=== PATIENT | male | born 1970 | race Two or more races ===

== ENCOUNTER 2019-12-20 13:03 | Observation (INO) | payer MEDICAID ==
[2019-12-20] MEDS ORDERED: Sodium Chloride 0.9% 10 ML Syringe FLUSH PRN (13:59)
[2019-12-20] MEDS ORDERED: Sodium Chloride 0.9% 2.5 ML Syringe FLUSH PRN (13:59)
[2019-12-20 14:26] LABS: BLOOD UREA NITROGEN,BUN 14 mg/dL (7.0-18.0); CARBON DIOXIDE,CO2 25.9 mmol/L (21.0-32.0); CHLORIDE,CL 105 mmol/L (98-107); GLUCOSE RANDOM 103 mg/dL (74-106); POTASSIUM,K 4.2 mmol/L (3.5-5.1); SODIUM,NA 143 mmol/L (136-148)
--- NOTE | 2019-12-20 14:45 | EDM.PDOC ---
ED HPI GENERAL MEDICAL PROBLEM - General Chief Complaint: Chest Pain Stated Complaint: HEAD PAIN WEAKNESS Time Seen by Provider: 12/20/19 13:12 Source of Information: Reports: Patient History Limitations: Reports: No Limitations - History of Present Illness INITIAL COMMENTS - FREE TEXT/NARRATIVE: HISTORY AND PHYSICAL: History of present illness: Patient is a 49-year-old male who presents to the ED today with concern of left sided head pressure, neck pain, and chest pain that worsened this morning before coming to the ED. Patient states he has had a generalized pressure in his head over the past 3 to 4 weeks but this morning has become more severe. Patient states that he is also having chest pain that radiates up into his neck and into the left side of his head. Patient states that it is not a typical headache but feels like a head pressure radiating chest pain. Patient denies any head injury or trauma. 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 Patient states he does have an extensive family history of "heart problems "but is unsure of what these issues are. Patient denies fever, chills, shortness of breath, or cough. Denies neck stiff ness, change in vision, syncope, or near syncope. Denies nausea, vomiting, abdominal pain, diarrhea, constipation, or dysuria. Has not noted any blood in urine or stool. Patient has been eating and drinking appropriately. Review of systems: As per history of present illness and below otherwise all systems reviewed and negative. Past medical history: As per history of present illness and as reviewed below otherwise noncontributory. Surgical history: As per history of present illness and as reviewed below otherwise noncontributory. Social history: See social history for further information Family history: As per history of present illness and as reviewed below otherwise noncontributory. Physical exam: General: Patient is alert, oriented, and in no acute distress. Patient sitting comfortably on exam table but anxious appearing. HEENT: Atraumatic, normocephalic, pupils equal and reactive bilaterally, negative for conjunctival pallor or scleral icterus, mucous membranes moist, TMs normal bilaterally, throat clear, neck supple, nontender, trachea midline. No drooling or trismus noted. No meningeal signs. No hot potato voice noted. Lungs: Clear to auscultation, breath sounds equal bilaterally, chest nontender. Heart: S1S2, regular rate and rhythm without overt murmur Abdomen: Soft, nondistended, nontender. Negative for masses or hepatosplenomegaly. Negative for costovertebral tenderness. Pelvis: Stable nontender. Genitourinary: Deferred. Rectal: Deferred. Skin: Intact, warm, dry. No lesions or rashes noted. Extremities/musculoskeletal: Patient has full range of motion of the complete spine without pain or difficulty. Atraumatic, negative for cords or calf pain. Neurovascular unremarkable. Neuro: Awake, alert, oriented. Cranial nerves II through XII unremarkable. Cerebellum unremarkable. Motor and sensory unremarkable throughout. Exam nonfocal. Notes: Discussed patient Dr. Caraballo and accepting of admission for observation telemetry. Dr. Mccann verbally involved in patient care. Voices understanding and is agreeable to plan of care. Denies any further questions or concerns at this time. Diagnostics: CBC, CMP, UA, EKG, CXR, Trop, Head CT, Ang CT head/neck,COVID 19 Therapeutics: ASA, Morphine Impression: Chest pain r/o ACS Headache Plan: Admission for observation on telemetry to Dr. Caraballo Definitive disposition and diagnosis as appropriate pending reevaluation and review of above. chest Pain Score (Numeric/FACES): 8 - Related Data Allergies Allergy/AdvReac Type Severity Reaction Status Date / Time shrimp Allergy Swelling Verified 12/20/19 13:50 Home Meds: Home Meds . [No Known Home Meds] 12/20/19 [History] Past Medical History HEENT History: Reports: Other (See Below) Other HEENT History: frequent lock jaw Musculoskeletal History: Reports: None - Past Surgical History HEENT Surgical History: Reports: Other (See Below) Other HEENT Surgeries/Procedures: R jaw Musculoskeletal Surgical History: Reports: Other (See Below) Other Musculoskeletal Surgeries/Procedures:: work related injury to L arm that led to nerve damage Social & Family History - Family History Family Medical History: Noncontributory - Tobacco Use Smoking Status *Q: Never Smoker Second Hand Smoke Exposure: No - Caffeine Use Caffeine Use: Reports: None - Recreational Drug Use Recreational Drug Use: No ED ROS GENERAL - Review of Systems Review Of Systems: Comprehensive ROS is negative, except as noted in HPI. ED EXAM, GENERAL - Physical Exam Exam: See Below (see dictation) Course - Vital Signs Last Recorded V/S: Last Vital Signs Temp 97 F 12/20/19 13:46 Pulse 65 12/20/19 15:12 Resp 18 12/20/19 13:46 BP 123/88 12/20/19 15:12 Pulse Ox 96 12/20/19 15:12 - Orders/Labs/Meds Orders: Active Orders 24 hr Category Date Time Status Admission Status [Patient Status] [ADT] Stat ADT 12/20/19 16:52 Active Sodium Chloride 0.9% [Saline Flush] Med 12/20/19 13:59 Active 10 ml FLUSH ASDIRECTED PRN Sodium Chloride 0.9% [Saline Flush] Med 12/20/19 13:59 Active 2.5 ml FLUSH ASDIRECTED PRN Saline Lock Insert [OM.PC] Stat Oth 12/20/19 13:59 Ordered Medication Orders Enoxaparin Sodium (Lovenox) 40 mg SUBCUT Q24H [facility] Insulin Aspart (Novolog) 0 unit SUBCUT TIDAC [facility]; Protocol Pantoprazole Sodium (Protonix) 40 mg PO DAILY SANDI Sodium Chloride (Saline Flush) 10 ml FLUSH ASDIRECTED PRN PRN Reason: Keep Vein Open Last Admin: 12/20/19 15:16 Dose: 10 ml Documented by: MARY Sodium Chloride (Saline Flush) 2.5 ml FLUSH ASDIRECTED PRN PRN Reason: Keep Vein Open Last Admin: 12/20/19 15:16 Dose: 2.5 ml Documented by: MARY Labs: Laboratory Tests 12/20/19 12/20/19 12/20/19 Range/Units 13:47 13:47 13:47 WBC 6.47 (4.0-11.0) K/uL RBC 4.28 L (4.50-5.90) M/uL Hgb 13.8 (13.0-17.0) g/dL Hct 41.2 (38.0-50.0) % MCV 96.3 (80.0-98.0) fL MCH 32.2 H (27.0-32.0) pg MCHC 33.5 (31.0-37.0) g/dL RDW Std Deviation 46.9 (28.0-62.0) fl RDW Coeff of Elena 13 (11.0-15.0) % Plt Count 242 (150-400) K/uL MPV 9.00 (7.40-12.00) fL Neut % (Auto) 54.3 (48.0-80.0) % Lymph % (Auto) 36.2 (16.0-40.0) % [place] % (Auto) 7.9 (0.0-15.0) % Eos % (Auto) 1.4 (0.0-7.0) % Baso % (Auto) 0.2 (0.0-1.5) % Neut # (Auto) 3.5 (1.4-5.7) K/uL Lymph # (Auto) 2.3 (0.6-2.4) K/uL [place] # (Auto) 0.5 (0.0-0.8) K/uL Eos # (Auto) 0.1 (0.0-0.7) K/uL Baso # (Auto) 0.0 (0.0-0.1) K/uL Nucleated RBC % 0.0 /100WBC Nucleated RBCs # 0 K/uL ESR 17 (0-19) mm/hr Sodium 143 (136-148) mmol/L Potassium 4.2 (3.5-5.1) mmol/L Chloride 105 (98-107) mmol/L Carbon Dioxide 25.9 (21.0-32.0) mmol/L BUN 14 (7.0-18.0) mg/dL Creatinine 1.2 (0.8-1.3) mg/dL Est Cr Clr Drug Dosing 68.09 mL/min Estimated GFR (MDRD) > 60.0 ml/min Glucose 103 (74-106) mg/dL Hemoglobin A1c (4.5-6.2) % Calcium 9.3 (8.5-10.1) mg/dL Total Bilirubin 0.5 (0.2-1.0) mg/dL AST 24 (15-37) IU/L ALT 56 (14-63) IU/L Alkaline Phosphatase 94 (46-116) U/L Troponin I < 0.050 (0.000-0.056) ng/mL Total Protein 7.7 (6.4-8.2) g/dL Albumin 3.8 (3.4-5.0) g/dL Globulin 3.9 (2.6-4.0) g/dL Albumin/Globulin Ratio 1.0 (0.9-1.6) Urine Color Urine Appearance Urine pH (5.0-8.0) Ur Specific [place] (1.001-1.035) Urine Protein (NEGATIVE) mg/dL Urine Glucose (UA) (NEGATIVE) mg/dL Urine Ketones (NEGATIVE) mg/dL Urine Occult Blood (NEGATIVE) Urine Nitrite (NEGATIVE) Urine Bilirubin (NEGATIVE) Urine Urobilinogen (<2.0) EU/dL Ur Leukocyte Esterase (NEGATIVE) SARS-CoV-2 RNA (MARIANA) (NEGATIVE) 12/20/19 12/20/19 12/20/19 Range/Units 13:47 14:22 17:00 WBC (4.0-11.0) K/uL RBC (4.50-5.90) M/uL Hgb (13.0-17.0) g/dL Hct (38.0-50.0) % MCV (80.0-98.0) fL MCH (27.0-32.0) pg MCHC (31.0-37.0) g/dL RDW Std Deviation (28.0-62.0) fl RDW Coeff of Elena (11.0-15.0) % Plt Count (150-400) K/uL MPV (7.40-12.00) fL Neut % (Auto) (48.0-80.0) % Lymph % (Auto) (16.0-40.0) % [place] % (Auto) (0.0-15.0) % Eos % (Auto) (0.0-7.0) % Baso % (Auto) (0.0-1.5) % Neut # (Auto) (1.4-5.7) K/uL Lymph # (Auto) (0.6-2.4) K/uL [place] # (Auto) (0.0-0.8) K/uL Eos # (Auto) (0.0-0.7) K/uL Baso # (Auto) (0.0-0.1) K/uL Nucleated RBC % /100WBC Nucleated RBCs # K/uL ESR (0-19) mm/hr Sodium (136-148) mmol/L Potassium (3.5-5.1) mmol/L Chloride (98-107) mmol/L Carbon Dioxide (21.0-32.0) mmol/L BUN (7.0-18.0) mg/dL Creatinine (0.8-1.3) mg/dL Est Cr Clr Drug Dosing mL/min Estimated GFR (MDRD) ml/min Glucose (74-106) mg/dL Hemoglobin A1c 6.5 H (4.5-6.2) % Calcium (8.5-10.1) mg/dL Total Bilirubin (0.2-1.0) mg/dL AST (15-37) IU/L ALT (14-63) IU/L Alkaline Phosphatase (46-116) U/L Troponin I (0.000-0.056) ng/mL Total Protein (6.4-8.2) g/dL Albumin (3.4-5.0) g/dL Globulin (2.6-4.0) g/dL Albumin/Globulin Ratio (0.9-1.6) Urine Color YELLOW Urine Appearance CLEAR Urine pH 5.5 (5.0-8.0) Ur Specific [place] 1.025 (1.001-1.035) Urine Protein NEGATIVE (NEGATIVE) mg/dL Urine Glucose (UA) NEGATIVE (NEGATIVE) mg/dL Urine Ketones NEGATIVE (NEGATIVE) mg/dL Urine Occult Blood NEGATIVE (NEGATIVE) Urine Nitrite NEGATIVE (NEGATIVE) Urine Bilirubin NEGATIVE (NEGATIVE) Urine Urobilinogen 0.2 (<2.0) EU/dL Ur Leukocyte Esterase NEGATIVE (NEGATIVE) SARS-CoV-2 RNA (MARIANA) NEGATIVE (NEGATIVE) Meds: Medications Generic Name Dose Route Start Last Admin Trade Name Freq PRN Reason Stop Dose Admin Enoxaparin Sodium 40 mg 12/20/19 17:30 Lovenox SUBCUT Q24H [facility] Insulin Aspart 0 unit 12/21/19 07:30 Novolog SUBCUT TIDAC [facility] Protocol Pantoprazole Sodium 40 mg 12/20/19 17:30 Protonix PO DAILY SANDI Sodium Chloride 10 ml 12/20/19 13:59 12/20/19 15:16 Saline Flush FLUSH 10 ml ASDIRECTED PRN Administration Keep Vein Open Sodium Chloride 2.5 ml 12/20/19 13:59 12/20/19 15:16 Saline Flush FLUSH 2.5 ml ASDIRECTED PRN Administration Keep Vein Open Discontinued Medications Generic Name Dose Route Start Last Admin Trade Name Hao PRGuilherme Reason Stop Dose Admin Aspirin 324 mg 12/20/19 16:46 12/20/19 16:55 Aspirin PO 12/20/19 16:47 324 mg ONETIME ONE Administration Iopamidol 100 ml 12/20/19 16:12 12/20/19 16:14 Isovue Multipack-370 (76%) IVPUSH 12/20/19 16:13 100 ml ONETIME ONE Administration Morphine Sulfate 2 mg 12/20/19 16:46 12/20/19 16:55 Morphine IVPUSH 12/20/19 16:47 2 mg ONETIME ONE Administration Departure - Departure Time of Disposition: 16:57 Disposition: Refer to Observation Clinical Impression: Chest pain, rule out acute myocardial infarction Headache Qualifiers: Headache type: unspecified Headache chronicity pattern: acute headache Intractability: not intractable Qualified Code(s): R51 - Headache - Discharge Information Sepsis Event Note (ED) - Evaluation Sepsis Screening Result: No Definite Risk - Focused Exam Vital Signs: Vital Signs Temp Pulse Resp BP Pulse Ox 12/20/19 15:12 65 123/88 96 12/20/19 14:43 70 102/62 97 12/20/19 14:12 70 142/94 H 96 12/20/19 13:57 70 128/68 96 12/20/19 13:46 97 F 72 18 130/91 H 97 - My Orders Last 24 Hours: My Active Orders 12/20/19 13:59 Sodium Chloride 0.9% [Saline Flush] 10 ml FLUSH ASDIRECTED PRN Sodium Chloride 0.9% [Saline Flush] 2.5 ml FLUSH ASDIRECTED PRN Saline Lock Insert [OM.PC] Stat 12/20/19 16:52 Admission Status [Patient Status] [ADT] Stat - Assessment/Plan Last 24 Hours: My Active Orders 12/20/19 13:59 Sodium Chloride 0.9% [Saline Flush] 10 ml FLUSH ASDIRECTED PRN Sodium Chloride 0.9% [Saline Flush] 2.5 ml FLUSH ASDIRECTED PRN Saline Lock Insert [OM.PC] Stat 12/20/19 16:52 Admission Status [Patient Status] [ADT] Stat
--- NOTE | 2019-12-20 14:46 | CR ---
Chest: Portable view of the chest was obtained. Comparison: No prior chest imaging. Heart size and mediastinum are normal. Lungs are clear with no acute parenchymal change. Bony structures are grossly intact. Impression: 1. Nothing acute is seen on portable chest x-ray. Diagnostic code #1 This report was dictated in MDT
--- NOTE | 2019-12-20 15:25 | CT ---
Head CT Technique: Multiple axial sections through the brain were obtained. Intravenous contrast was not utilized. Comparison: No prior intracranial imaging is available. Findings: Ventricles along with basal cisterns and sulci over the convexities are within normal limits for the patient's age. No abnormal parenchymal densities are seen. No evidence of intracranial hemorrhage. No midline shift or mass-effect is seen. Visualized paranasal sinuses and mastoid sinuses show nothing acute. No acute calvarial finding is appreciated. Impression: 1. Nothing acute is appreciated on noncontrast head CT exam. Diagnostic code #1 This report was dictated in MDT
[2019-12-20] MEDS ORDERED: Iopamidol 755 MG/ML 500 ML Multipack Bottle IVPUSH ONE (16:12)
--- NOTE | 2019-12-20 16:30 | CT ---
CT angiogram of brain Technique: Multiple axial sections through the brain were obtained. Intravenous contrast was utilized. Study obtained during the arterial phase and CT angiogram study obtained. Multiple MIP images were obtained. Findings: Dominant right vertebral artery over the left vertebral artery which is a normal variant. Both distal vertebral arteries are patent. Basilar artery appears normal. Posterior cerebral arteries appear within normal limits. Anterior circulation shows normal flow into the carotid siphon. Normal flow into the middle cerebral arteries and anterior cerebral arteries are seen. No focal stenosis or occlusion is seen. No discrete aneurysm is appreciated. Impression: 1. No abnormality is appreciated on CT angiogram of the brain. Diagnostic code #1 This report was dictated in MDT
--- NOTE | 2019-12-20 16:35 | CT ---
CT angiogram and neck Technique: Multiple axial sections through the neck were obtained. Intravenous contrast was utilized. Study obtained during the arterial phase and neck angiogram was performed. Findings: Artifact is noted which obscures the proximal right common carotid artery. Other portions of the common carotid arteries are well seen and patent on both sides. Carotid bulbs appear within normal limits. Internal carotid arteries are patent on both sides. Proximal external carotid arteries are also patent on both sides. No occlusion or stenosis is seen. No dissection is seen. Mild degenerative change partially visualized within the cervical spine. Impression: 1. Artifact obscuring the proximal right common carotid artery. 2. Mild degenerative change is partially visualized within the cervical spine. 3. CT angiogram of the neck is otherwise unremarkable. Diagnostic code #2 This report was dictated in MDT
[2019-12-20] MEDS ORDERED: Aspirin 81 MG Tab.Chew PO ONE (16:46)
[2019-12-20] MEDS ORDERED: Morphine 2 MG/ML SYRINGE IVPUSH ONE (16:46)
--- NOTE | 2019-12-20 17:21 | PCM.HP.2 ---
<Becca Ortiz - Last Filed: 12/21/19 13:09> H&P History of Present Illness - General Date of Service: 12/20/19 Admit Problem/Dx: Admission Diagnosis/Problem Admission Diagnosis/Problem Chest pain Source of Information: Patient History Limitations: Reports: No Limitations - History of Present Illness Initial Comments - Free Text/Narative: 49-year-old male who presents to the ED today with concern of left sided head pressure, neck pain, and chest pain that worsened this morning before coming to the ED. Patient states he has had a generalized pressure in his head over the past 3 to 4 weeks but this morning has become more severe. Patient states that he is also having chest pain that radiates up into his neck and into the left side of his head. Patient states that it is not a typical headache but feels like a head pressure radiating chest pain. Patient denies any head injury or trauma. 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 Patient states he does have an extensive family history of "heart problems "but is unsure of what these issues are. Patient denies fever, chills, shortness of breath, or cough. Denies neck stiff ness, change in vision, syncope, or near syncope. Denies nausea, vomiting, abdominal pain, diarrhea, constipation, or dysuria. Has not noted any blood in urine or stool. Patient has been eating and drinking appropriately. ED course: ASA given Morphine x 1 given Troponin x 1 negative UA negative CBC/CMP unremarkable CXR, CTA, chest head and neck did not yield any acute pathology EKG:NSR w.o ST elevations/depressions Bedside: mentions pain is mostly over his head/forehead, left side of his neck and left side of chest: mentions pain has improved since given the Morphine Also endorses urninating more frequently with increasing bouts of diarrhea Denies any fevers, chills, BA. Of note pt does have at baseline, chronic loss of sensation of both left upper extremity (right hand dominant) and left lower extremity secondary to previous work-related traumas. Mentions vision has been worsening ans states he sees floaters and dark spots at times. Denies any recent head trauma, falls or over exertion chest Pain Score (Numeric/FACES): 8 Left shoulder & neck Pain Score (Numeric/FACES): 6 - Related Data Allergies/Adverse Reactions: Allergies Allergy/AdvReac Type Severity Reaction Status Date / Time shrimp Allergy Swelling Verified 12/20/19 19:10 Home Medications: Home Meds Diclofenac Sodium 25 mg PO BID PRN 7 Days #14 tablet. 12/21/19 [Rx] Omeprazole 20 mg PO DAILY 7 Days #7 capsule. 12/21/19 [Rx] metFORMIN [Glucophage] 500 mg PO DAILY 30 Days #30 tab 12/21/19 [Rx] Past Medical History HEENT History: Reports: Other (See Below) Other HEENT History: frequent lock jaw Musculoskeletal History: Reports: None - Past Surgical History HEENT Surgical History: Reports: Other (See Below) Other HEENT Surgeries/Procedures: R jaw Musculoskeletal Surgical History: Reports: Other (See Below) Other Musculoskeletal Surgeries/Procedures:: work related injury to L arm that led to nerve damage Social & Family History - Family History Family Medical History: Noncontributory - Tobacco Use Smoking Status *Q: Never Smoker Second Hand Smoke Exposure: No - Caffeine Use Caffeine Use: Reports: None - Recreational Drug Use Recreational Drug Use: No H&P Review of Systems - Review of Systems: Review Of Systems: See Below General: Reports: No Symptoms HEENT: Reports: No Symptoms Pulmonary: Reports: No Symptoms Cardiovascular: Reports: Chest Pain. Denies: Palpitations, Dyspnea on Exertion, Orthopnea, Edema, Lightheadedness Gastrointestinal: Reports: Diarrhea. Denies: Abdominal Pain, Constipation, Decreased Appetite, Nausea Genitourinary: Reports: No Symptoms Musculoskeletal: Reports: Neck Pain, Shoulder Pain Skin: Reports: No Symptoms Psychiatric: Reports: No Symptoms Neurological: Reports: Headache, Numbness, Paresthesia, Pre-Existing Deficit. Denies: Confusion, Dizziness, Seizure, Syncope, Difficulty Walking, Change in Speech, Gait Disturbance Hematologic/Lymphatic: Reports: No Symptoms Exam - Exam Exam: See Below - Vital Signs Vital Signs: Last Vital Signs Temp 97 F 12/20/19 13:46 Pulse 65 12/20/19 15:12 Resp 18 12/20/19 13:46 BP 123/88 12/20/19 15:12 Pulse Ox 96 12/20/19 15:12 Weight: 97 kg - Exam Quality Assessment: No: Supplemental Oxygen General: Alert, Oriented, Cooperative HEENT: EOMI Neck: Supple, Trachea Midline Lungs: Clear to Auscultation, Normal Respiratory Effort Cardiovascular: Regular Rate, Regular Rhythm GI/Abdominal Exam: Soft, Non-Tender Back Exam: Normal Inspection Extremities: Normal Range of Motion, Other (decrease sensation of left ankle- merly; old surgical scar noted ; pressure senstion intat, ROM intact. Left armpit/axiallry scars noted as well; right hand dominant ; 4/5 strength of left upper extremity compared to right ) Skin: Warm, Dry, Intact Neurological: Cranial Nerves Intact, Reflexes Equal Bilateral, Normal Speech Neuro Extensive - Mental Status: Alert, Oriented x3, Normal Mood/Affect, Normal Cognition, Memory Intact Neuro Extensive - Motor, Sensory, Reflexes: CN II-XII Intact Psychiatric: Alert, Normal Affect, Normal Mood - Patient Data Lab Results Last 24 hrs: Laboratory Results - last 24 hr 12/20/19 12/20/19 12/20/19 Range/Units 13:47 13:47 14:22 WBC 6.47 (4.0-11.0) K/uL RBC 4.28 L (4.50-5.90) M/uL Hgb 13.8 (13.0-17.0) g/dL Hct 41.2 (38.0-50.0) % MCV 96.3 (80.0-98.0) fL MCH 32.2 H (27.0-32.0) pg MCHC 33.5 (31.0-37.0) g/dL RDW Std Deviation 46.9 (28.0-62.0) fl RDW Coeff of Elena 13 (11.0-15.0) % Plt Count 242 (150-400) K/uL MPV 9.00 (7.40-12.00) fL Neut % (Auto) 54.3 (48.0-80.0) % Lymph % (Auto) 36.2 (16.0-40.0) % [place] % (Auto) 7.9 (0.0-15.0) % Eos % (Auto) 1.4 (0.0-7.0) % Baso % (Auto) 0.2 (0.0-1.5) % Neut # (Auto) 3.5 (1.4-5.7) K/uL Lymph # (Auto) 2.3 (0.6-2.4) K/uL [place] # (Auto) 0.5 (0.0-0.8) K/uL Eos # (Auto) 0.1 (0.0-0.7) K/uL Baso # (Auto) 0.0 (0.0-0.1) K/uL Nucleated RBC % 0.0 /100WBC Nucleated RBCs # 0 K/uL Sodium 143 (136-148) mmol/L Potassium 4.2 (3.5-5.1) mmol/L Chloride 105 (98-107) mmol/L Carbon Dioxide 25.9 (21.0-32.0) mmol/L BUN 14 (7.0-18.0) mg/dL Creatinine 1.2 (0.8-1.3) mg/dL Est Cr Clr Drug Dosing 68.09 mL/min Estimated GFR (MDRD) > 60.0 ml/min Glucose 103 (74-106) mg/dL Calcium 9.3 (8.5-10.1) mg/dL Total Bilirubin 0.5 (0.2-1.0) mg/dL AST 24 (15-37) IU/L ALT 56 (14-63) IU/L Alkaline Phosphatase 94 (46-116) U/L Troponin I < 0.050 (0.000-0.056) ng/mL Total Protein 7.7 (6.4-8.2) g/dL Albumin 3.8 (3.4-5.0) g/dL Globulin 3.9 (2.6-4.0) g/dL Albumin/Globulin Ratio 1.0 (0.9-1.6) Urine Color YELLOW Urine Appearance CLEAR Urine pH 5.5 (5.0-8.0) Ur Specific Post 1.025 (1.001-1.035) Urine Protein NEGATIVE (NEGATIVE) mg/dL Urine Glucose (UA) NEGATIVE (NEGATIVE) mg/dL Urine Ketones NEGATIVE (NEGATIVE) mg/dL Urine Occult Blood NEGATIVE (NEGATIVE) Urine Nitrite NEGATIVE (NEGATIVE) Urine Bilirubin NEGATIVE (NEGATIVE) Urine Urobilinogen 0.2 (<2.0) EU/dL Ur Leukocyte Esterase NEGATIVE (NEGATIVE) Result Diagrams: 12/21/19 06:05 12/21/19 06:05 Sepsis Event Note - Evaluation Sepsis Screening Result: No Definite Risk - Focused Exam Vital Signs: Vital Signs Temp Pulse Resp BP Pulse Ox 12/20/19 15:12 65 123/88 96 12/20/19 14:43 70 102/62 97 12/20/19 14:12 70 142/94 H 96 12/20/19 13:57 70 128/68 96 12/20/19 13:46 97 F 72 18 130/91 H 97 Problem List Initiated/Reviewed/Updated: Yes Orders Last 24hrs: Active Orders 24 hr Category Date Time Status Admission Status [Patient Status] [ADT] Stat ADT 12/20/19 16:52 Active EKG Documentation Completion [RC] STAT Care 12/20/19 13:58 Active Telemetry Monitoring [Cardiac Monitoring] [RC] . Care 12/20/19 17:18 Ordered DIRECTED Up ad Michelle [RC] ASDIRECTED Care 12/20/19 17:18 Ordered Vital Signs [RC] PER UNIT ROUTINE Care 12/20/19 17:18 Ordered BMP [BASIC METABOLIC PANEL,BMP] [CHEM] AM Lab 12/21/19 05:11 Ordered BMP [BASIC METABOLIC PANEL,BMP] [CHEM] AM Lab 12/22/19 05:11 Ordered BMP [BASIC METABOLIC PANEL,BMP] [CHEM] AM Lab 12/23/19 05:11 Ordered CBC WITH AUTO DIFF [HEME] AM Lab 12/21/19 05:11 Ordered CBC WITH AUTO DIFF [HEME] AM Lab 12/22/19 05:11 Ordered CBC WITH AUTO DIFF [HEME] AM Lab 12/23/19 05:11 Ordered CORONAVIRUS COVID-19 MARIANA [MOLEC] Stat Lab 12/20/19 17:00 Received CRP [C-REACTIVE PROTEIN] [CHEM] Routine Lab 12/20/19 17:17 Ordered ESR [SEDIMENTATION RATE AUTO] [HEME] Routine Lab 12/20/19 17:16 Ordered GLYCOSYLATED HEMOGLOBIN,HGBA1C [CHEM] Routine Lab 12/20/19 17:17 Ordered TROPONIN I [CHEM] Stat Lab 12/20/19 20:30 Ordered TROPONIN I [CHEM] Urgent Lab 12/20/19 17:20 Ordered Enoxaparin [Lovenox] Med 12/20/19 17:30 Ordered 40 mg SUBCUT Q24H Pantoprazole [ProTONIX] Med 09/18/20 17:30 Ordered 40 mg PO DAILY Sodium Chloride 0.9% [Saline Flush] Med 12/20/19 13:59 Active 10 ml FLUSH ASDIRECTED PRN Sodium Chloride 0.9% [Saline Flush] Med 12/20/19 13:59 Active 2.5 ml FLUSH ASDIRECTED PRN Saline Lock Insert [OM.PC] Stat Oth 12/20/19 13:59 Ordered Medication Orders Enoxaparin Sodium (Lovenox) 40 mg SUBCUT Q24H SANDI Pantoprazole Sodium (Protonix) 40 mg PO DAILY SANDI Sodium Chloride (Saline Flush) 10 ml FLUSH ASDIRECTED PRN PRN Reason: Keep Vein Open Last Admin: 12/20/19 15:16 Dose: 10 ml Documented by: MARY Sodium Chloride (Saline Flush) 2.5 ml FLUSH ASDIRECTED PRN PRN Reason: Keep Vein Open Last Admin: 12/20/19 15:16 Dose: 2.5 ml Documented by: MARY Assessment/Plan Comment:: Assessment: 1. Chest pain /ACS rule out 2. Headache/Migraine 2. Newly diagnosed DM 3. 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 Obesity Plan Admit to observation. Full code. I/o's per routine. up ad michelle. Diet :heart healthy GI: pantoprazole 40 daily DVT: lovenox 40 daily Covid negaitve 1. ACS rule out: ASA given. recheck troponin x 2 q 3hours . Continue on telemetry Tylenol/Ibuprofen for pain control Discharge: on Zio-patch, outpatient stress test when appropriate 2. DM: pt endorses strong history of DM in family; A1c 6.5 : in light of increasing paresthesias, abdominal discomfort, polyuria and abdominal discomfort; will start on SSI; most likely will discharge w/ follow up with DM educator +Metformin 3. Headache: pt .endorses forehead pain/headache w. feelings of "passing" out at home ; endorses "pressure" over scalp; ESR negative ; CN intact and no deficits in speech or tone appreciated at bedside examination Extensive imaging did not yield any acute concerns; can consider an MRI brain /Head on outpatient setting if no other accompanied symptoms are appreciated. <Suzie Caraballo - Last Filed: 12/21/19 13:43> H&P History of Present Illness - General Admit Problem/Dx: Admission Diagnosis/Problem Admission Diagnosis/Problem Chest pain - History of Present Illness Initial Comments - Free Text/Narative: I performed a history and physical exam of the patient and discussed management with resident. I have reviewed the residents note and agree with documented findings and plan unless otherwise specified in my note. I Exam - Vital Signs Vital Signs: Last Vital Signs Temp 36.8 C 12/21/19 12:00 Pulse 74 12/21/19 12:00 Resp 16 12/21/19 12:00 BP 96/64 12/21/19 12:00 Pulse Ox 96 12/21/19 12:00 - Patient Data Lab Results Last 24 hrs: Laboratory Results - last 24 hr 12/20/19 12/20/19 12/20/19 Range/Units 13:47 13:47 13:47 WBC 6.47 (4.0-11.0) K/uL RBC 4.28 L (4.50-5.90) M/uL Hgb 13.8 (13.0-17.0) g/dL Hct 41.2 (38.0-50.0) % MCV 96.3 (80.0-98.0) fL MCH 32.2 H (27.0-32.0) pg MCHC 33.5 (31.0-37.0) g/dL RDW Std Deviation 46.9 (28.0-62.0) fl RDW Coeff of Elena 13 (11.0-15.0) % Plt Count 242 (150-400) K/uL MPV 9.00 (7.40-12.00) fL Neut % (Auto) 54.3 (48.0-80.0) % Lymph % (Auto) 36.2 (16.0-40.0) % [place] % (Auto) 7.9 (0.0-15.0) % Eos % (Auto) 1.4 (0.0-7.0) % Baso % (Auto) 0.2 (0.0-1.5) % Neut # (Auto) 3.5 (1.4-5.7) K/uL Lymph # (Auto) 2.3 (0.6-2.4) K/uL [place] # (Auto) 0.5 (0.0-0.8) K/uL Eos # (Auto) 0.1 (0.0-0.7) K/uL Baso # (Auto) 0.0 (0.0-0.1) K/uL Nucleated RBC % 0.0 /100WBC Nucleated RBCs # 0 K/uL ESR 17 (0-19) mm/hr Sodium 143 (136-148) mmol/L Potassium 4.2 (3.5-5.1) mmol/L Chloride 105 (98-107) mmol/L Carbon Dioxide 25.9 (21.0-32.0) mmol/L BUN 14 (7.0-18.0) mg/dL Creatinine 1.2 (0.8-1.3) mg/dL Est Cr Clr Drug Dosing 68.09 mL/min Estimated GFR (MDRD) > 60.0 ml/min Glucose 103 (74-106) mg/dL POC Glucose (60-110) mg/dL Hemoglobin A1c (4.5-6.2) % Calcium 9.3 (8.5-10.1) mg/dL Total Bilirubin 0.5 (0.2-1.0) mg/dL AST 24 (15-37) IU/L ALT 56 (14-63) IU/L Alkaline Phosphatase 94 (46-116) U/L Troponin I < 0.050 (0.000-0.056) ng/mL C-Reactive Protein (0.00-0.90) mg/dL Total Protein 7.7 (6.4-8.2) g/dL Albumin 3.8 (3.4-5.0) g/dL Globulin 3.9 (2.6-4.0) g/dL Albumin/Globulin Ratio 1.0 (0.9-1.6) Triglycerides (0-200) mg/dL Cholesterol (50-200) mg/dL LDL Cholesterol, Calc (60-180) mg/dL VLDL Cholesterol (5-55) mg/dL HDL Cholesterol (40-60) mg/dL Cholesterol/HDL Ratio (3.3-6.0) TSH 3rd Generation (0.36-3.74) uIU/mL Urine Color Urine Appearance Urine pH (5.0-8.0) Ur Specific Post (1.001-1.035) Urine Protein (NEGATIVE) mg/dL Urine Glucose (UA) (NEGATIVE) mg/dL Urine Ketones (NEGATIVE) mg/dL Urine Occult Blood (NEGATIVE) Urine Nitrite (NEGATIVE) Urine Bilirubin (NEGATIVE) Urine Urobilinogen (<2.0) EU/dL Ur Leukocyte Esterase (NEGATIVE) SARS-CoV-2 RNA (MARIANA) (NEGATIVE) 12/20/19 12/20/19 12/20/19 Range/Units 13:47 14:22 17:00 WBC (4.0-11.0) K/uL RBC (4.50-5.90) M/uL Hgb (13.0-17.0) g/dL Hct (38.0-50.0) % MCV (80.0-98.0) fL MCH (27.0-32.0) pg MCHC (31.0-37.0) g/dL RDW Std Deviation (28.0-62.0) fl RDW Coeff of Elena (11.0-15.0) % Plt Count (150-400) K/uL MPV (7.40-12.00) fL Neut % (Auto) (48.0-80.0) % Lymph % (Auto) (16.0-40.0) % [place] % (Auto) (0.0-15.0) % Eos % (Auto) (0.0-7.0) % Baso % (Auto) (0.0-1.5) % Neut # (Auto) (1.4-5.7) K/uL Lymph # (Auto) (0.6-2.4) K/uL [place] # (Auto) (0.0-0.8) K/uL Eos # (Auto) (0.0-0.7) K/uL Baso # (Auto) (0.0-0.1) K/uL Nucleated RBC % /100WBC Nucleated RBCs # K/uL ESR (0-19) mm/hr Sodium (136-148) mmol/L Potassium (3.5-5.1) mmol/L Chloride (98-107) mmol/L Carbon Dioxide (21.0-32.0) mmol/L BUN (7.0-18.0) mg/dL Creatinine (0.8-1.3) mg/dL Est Cr Clr Drug Dosing mL/min Estimated GFR (MDRD) ml/min Glucose (74-106) mg/dL POC Glucose (60-110) mg/dL Hemoglobin A1c 6.5 H (4.5-6.2) % Calcium (8.5-10.1) mg/dL Total Bilirubin (0.2-1.0) mg/dL AST (15-37) IU/L ALT (14-63) IU/L Alkaline Phosphatase (46-116) U/L Troponin I (0.000-0.056) ng/mL C-Reactive Protein (0.00-0.90) mg/dL Total Protein (6.4-8.2) g/dL Albumin (3.4-5.0) g/dL Globulin (2.6-4.0) g/dL Albumin/Globulin Ratio (0.9-1.6) Triglycerides (0-200) mg/dL Cholesterol (50-200) mg/dL LDL Cholesterol, Calc (60-180) mg/dL VLDL Cholesterol (5-55) mg/dL HDL Cholesterol (40-60) mg/dL Cholesterol/HDL Ratio (3.3-6.0) TSH 3rd Generation (0.36-3.74) uIU/mL Urine Color YELLOW Urine Appearance CLEAR Urine pH 5.5 (5.0-8.0) Ur Specific Post 1.025 (1.001-1.035) Urine Protein NEGATIVE (NEGATIVE) mg/dL Urine Glucose (UA) NEGATIVE (NEGATIVE) mg/dL Urine Ketones NEGATIVE (NEGATIVE) mg/dL Urine Occult Blood NEGATIVE (NEGATIVE) Urine Nitrite NEGATIVE (NEGATIVE) Urine Bilirubin NEGATIVE (NEGATIVE) Urine Urobilinogen 0.2 (<2.0) EU/dL Ur Leukocyte Esterase NEGATIVE (NEGATIVE) SARS-CoV-2 RNA (MARIANA) NEGATIVE (NEGATIVE) 12/20/19 12/20/19 12/20/19 Range/Units 18:05 18:05 20:39 WBC (4.0-11.0) K/uL RBC (4.50-5.90) M/uL Hgb (13.0-17.0) g/dL Hct (38.0-50.0) % MCV (80.0-98.0) fL MCH (27.0-32.0) pg MCHC (31.0-37.0) g/dL RDW Std Deviation (28.0-62.0) fl RDW Coeff of Elena (11.0-15.0) % Plt Count (150-400) K/uL MPV (7.40-12.00) fL Neut % (Auto) (48.0-80.0) % Lymph % (Auto) (16.0-40.0) % [place] % (Auto) (0.0-15.0) % Eos % (Auto) (0.0-7.0) % Baso % (Auto) (0.0-1.5) % Neut # (Auto) (1.4-5.7) K/uL Lymph # (Auto) (0.6-2.4) K/uL [place] # (Auto) (0.0-0.8) K/uL Eos # (Auto) (0.0-0.7) K/uL Baso # (Auto) (0.0-0.1) K/uL Nucleated RBC % /100WBC Nucleated RBCs # K/uL ESR (0-19) mm/hr Sodium (136-148) mmol/L Potassium (3.5-5.1) mmol/L Chloride (98-107) mmol/L Carbon Dioxide (21.0-32.0) mmol/L BUN (7.0-18.0) mg/dL Creatinine (0.8-1.3) mg/dL Est Cr Clr Drug Dosing mL/min Estimated GFR (MDRD) ml/min Glucose (74-106) mg/dL POC Glucose (60-110) mg/dL Hemoglobin A1c (4.5-6.2) % Calcium (8.5-10.1) mg/dL Total Bilirubin (0.2-1.0) mg/dL AST (15-37) IU/L ALT (14-63) IU/L Alkaline Phosphatase (46-116) U/L Troponin I < 0.050 < 0.050 (0.000-0.056) ng/mL C-Reactive Protein <0.20 (0.00-0.90) mg/dL Total Protein (6.4-8.2) g/dL Albumin (3.4-5.0) g/dL Globulin (2.6-4.0) g/dL Albumin/Globulin Ratio (0.9-1.6) Triglycerides 190 (0-200) mg/dL Cholesterol 183 (50-200) mg/dL LDL Cholesterol, Calc 101 (60-180) mg/dL VLDL Cholesterol 38 (5-55) mg/dL HDL Cholesterol 44 (40-60) mg/dL Cholesterol/HDL Ratio 4.2 (3.3-6.0) TSH 3rd Generation 3.52 (0.36-3.74) uIU/mL Urine Color Urine Appearance Urine pH (5.0-8.0) Ur Specific Post (1.001-1.035) Urine Protein (NEGATIVE) mg/dL Urine Glucose (UA) (NEGATIVE) mg/dL Urine Ketones (NEGATIVE) mg/dL Urine Occult Blood (NEGATIVE) Urine Nitrite (NEGATIVE) Urine Bilirubin (NEGATIVE) Urine Urobilinogen (<2.0) EU/dL Ur Leukocyte Esterase (NEGATIVE) SARS-CoV-2 RNA (MARIANA) (NEGATIVE) 12/21/19 12/21/19 12/21/19 Range/Units 06:05 06:05 07:07 WBC 5.42 (4.0-11.0) K/uL RBC 4.10 L (4.50-5.90) M/uL Hgb 13.1 (13.0-17.0) g/dL Hct 39.7 (38.0-50.0) % MCV 96.8 (80.0-98.0) fL MCH 32.0 (27.0-32.0) pg MCHC 33.0 (31.0-37.0) g/dL RDW Std Deviation 47.0 (28.0-62.0) fl RDW Coeff of Elena 13 (11.0-15.0) % Plt Count 206 (150-400) K/uL MPV 8.90 (7.40-12.00) fL Neut % (Auto) 43.5 L (48.0-80.0) % Lymph % (Auto) 45.0 H (16.0-40.0) % [place] % (Auto) 8.7 (0.0-15.0) % Eos % (Auto) 2.6 (0.0-7.0) % Baso % (Auto) 0.2 (0.0-1.5) % Neut # (Auto) 2.4 (1.4-5.7) K/uL Lymph # (Auto) 2.4 (0.6-2.4) K/uL [place] # (Auto) 0.5 (0.0-0.8) K/uL Eos # (Auto) 0.1 (0.0-0.7) K/uL Baso # (Auto) 0.0 (0.0-0.1) K/uL Nucleated RBC % 0.0 /100WBC Nucleated RBCs # 0 K/uL ESR (0-19) mm/hr Sodium 141 (136-148) mmol/L Potassium 4.1 (3.5-5.1) mmol/L Chloride 107 (98-107) mmol/L Carbon Dioxide 26.5 (21.0-32.0) mmol/L BUN 16 (7.0-18.0) mg/dL Creatinine 1.1 (0.8-1.3) mg/dL Est Cr Clr Drug Dosing 74.28 mL/min Estimated GFR (MDRD) > 60.0 ml/min Glucose 115 H (74-106) mg/dL POC Glucose 93 (60-110) mg/dL Hemoglobin A1c (4.5-6.2) % Calcium 8.5 (8.5-10.1) mg/dL Total Bilirubin (0.2-1.0) mg/dL AST (15-37) IU/L ALT (14-63) IU/L Alkaline Phosphatase (46-116) U/L Troponin I (0.000-0.056) ng/mL C-Reactive Protein (0.00-0.90) mg/dL Total Protein (6.4-8.2) g/dL Albumin (3.4-5.0) g/dL Globulin (2.6-4.0) g/dL Albumin/Globulin Ratio (0.9-1.6) Triglycerides (0-200) mg/dL Cholesterol (50-200) mg/dL LDL Cholesterol, Calc (60-180) mg/dL VLDL Cholesterol (5-55) mg/dL HDL Cholesterol (40-60) mg/dL Cholesterol/HDL Ratio (3.3-6.0) TSH 3rd Generation (0.36-3.74) uIU/mL Urine Color Urine Appearance Urine pH (5.0-8.0) Ur Specific Post (1.001-1.035) Urine Protein (NEGATIVE) mg/dL Urine Glucose (UA) (NEGATIVE) mg/dL Urine Ketones (NEGATIVE) mg/dL Urine Occult Blood (NEGATIVE) Urine Nitrite (NEGATIVE) Urine Bilirubin (NEGATIVE) Urine Urobilinogen (<2.0) EU/dL Ur Leukocyte Esterase (NEGATIVE) SARS-CoV-2 RNA (MARIANA) (NEGATIVE) 12/21/19 Range/Units 11:25 WBC (4.0-11.0) K/uL RBC (4.50-5.90) M/uL Hgb (13.0-17.0) g/dL Hct (38.0-50.0) % MCV (80.0-98.0) fL MCH (27.0-32.0) pg MCHC (31.0-37.0) g/dL RDW Std Deviation (28.0-62.0) fl RDW Coeff of Elena (11.0-15.0) % Plt Count (150-400) K/uL MPV (7.40-12.00) fL Neut % (Auto) (48.0-80.0) % Lymph % (Auto) (16.0-40.0) % [place] % (Auto) (0.0-15.0) % Eos % (Auto) (0.0-7.0) % Baso % (Auto) (0.0-1.5) % Neut # (Auto) (1.4-5.7) K/uL Lymph # (Auto) (0.6-2.4) K/uL [place] # (Auto) (0.0-0.8) K/uL Eos # (Auto) (0.0-0.7) K/uL Baso # (Auto) (0.0-0.1) K/uL Nucleated RBC % /100WBC Nucleated RBCs # K/uL ESR (0-19) mm/hr Sodium (136-148) mmol/L Potassium (3.5-5.1) mmol/L Chloride (98-107) mmol/L Carbon Dioxide (21.0-32.0) mmol/L BUN (7.0-18.0) mg/dL Creatinine (0.8-1.3) mg/dL Est Cr Clr Drug Dosing mL/min Estimated GFR (MDRD) ml/min Glucose (74-106) mg/dL POC Glucose 97 (60-110) mg/dL Hemoglobin A1c (4.5-6.2) % Calcium (8.5-10.1) mg/dL Total Bilirubin (0.2-1.0) mg/dL AST (15-37) IU/L ALT (14-63) IU/L Alkaline Phosphatase (46-116) U/L Troponin I (0.000-0.056) ng/mL C-Reactive Protein (0.00-0.90) mg/dL Total Protein (6.4-8.2) g/dL Albumin (3.4-5.0) g/dL Globulin (2.6-4.0) g/dL Albumin/Globulin Ratio (0.9-1.6) Triglycerides (0-200) mg/dL Cholesterol (50-200) mg/dL LDL Cholesterol, Calc (60-180) mg/dL VLDL Cholesterol (5-55) mg/dL HDL Cholesterol (40-60) mg/dL Cholesterol/HDL Ratio (3.3-6.0) TSH 3rd Generation (0.36-3.74) uIU/mL Urine Color Urine Appearance Urine pH (5.0-8.0) Ur Specific Post (1.001-1.035) Urine Protein (NEGATIVE) mg/dL Urine Glucose (UA) (NEGATIVE) mg/dL Urine Ketones (NEGATIVE) mg/dL Urine Occult Blood (NEGATIVE) Urine Nitrite (NEGATIVE) Urine Bilirubin (NEGATIVE) Urine Urobilinogen (<2.0) EU/dL Ur Leukocyte Esterase (NEGATIVE) SARS-CoV-2 RNA (MARIANA) (NEGATIVE) Result Diagrams: 12/21/19 06:05 12/21/19 06:05 Sepsis Event Note - Focused Exam Vital Signs: Vital Signs Temp Pulse Resp BP Pulse Ox 12/21/19 12:00 36.8 C 74 16 96/64 96 12/21/19 08:06 36.6 C 69 14 103/63 98 12/21/19 04:00 36.5 C 65 18 106/70 99 Orders Last 24hrs: Active Orders 24 hr Category Date Time Status Admission Status [Patient Status] [ADT] Stat ADT 12/20/19 16:52 Active Saline Lock Insert [OM.PC] Stat Oth 12/20/19 13:59 Ordered Code Status [Resuscitation Status] Routine Resus Stat 12/20/19 18:40 Ordered
[2019-12-20] MEDS ORDERED: Enoxaparin 40 MG/0.4 ML Syringe SUBCUT SCH (17:30)
[2019-12-20 17:39] LABS: HEMOGLOBIN A1C 6.5 % (4.5-6.2)
[2019-12-20] MEDS ORDERED: Acetaminophen 500 MG Tab PO PRN (18:36)
[2019-12-20] MEDS ORDERED: Melatonin 3 MG Tab PO PRN (18:36)
[2019-12-20] MEDS: Pantoprazole 40 MG Tab.CR PO SCH (19:04)
[2019-12-20] MEDS ORDERED: Ketorolac 30 MG/ML SDV IVPUSH ONE (19:59)
[2019-12-20] MEDS ORDERED: LORazepam 2 MG/ML SDV IVPUSH ONE (23:35)
[2019-12-21 06:39] LABS: BLOOD UREA NITROGEN,BUN 16 mg/dL (7.0-18.0); CARBON DIOXIDE,CO2 26.5 mmol/L (21.0-32.0); CHLORIDE,CL 107 mmol/L (98-107); GLUCOSE RANDOM 115 mg/dL (74-106); POTASSIUM,K 4.1 mmol/L (3.5-5.1); SODIUM,NA 141 mmol/L (136-148)
[2019-12-21] MEDS: Insulin Aspart 100 Units/ML 3 ML Pen SUBCUT SCH ×2 (08:07→12:12)
[2019-12-21] MEDS: Pantoprazole 40 MG Tab.CR PO SCH (09:52)
[2019-12-21] MEDS: Ketorolac 15 MG/ML SDV IVPUSH PRN ×2 (09:55→13:12)
--- NOTE | 2019-12-21 10:48 | PCM.DCSUM1 ---
Discharge Summary - Hospital Course Free Text/Narrative:: 49-year-old male who presents to the ED today with concern of left sided head pressure, neck pain, and chest pain that worsened this morning before coming to the ED. Patient states he has had a generalized pressure in his head over the past 3 to 4 weeks but this morning has become more severe. Patient states that he is also having chest pain that radiates up into his neck and into the left side of his head. Patient states that it is not a typical headache but feels like a head pressure radiating chest pain. Patient denies any head injury or trauma. 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 Patient states he does have an extensive family history of "heart problems "but is unsure of what these issues are. Patient denies fever, chills, shortness of breath, or cough. Denies neck stiff ness, change in vision, syncope, or near syncope. Denies nausea, vomiting, abdominal pain, diarrhea, constipation, or dysuria. Has not noted any blood in urine or stool. Patient has been eating and drinking appropriately. ED course: ASA given Morphine x 1 given Troponin x 1 negative UA negative CBC/CMP unremarkable CXR, CTA, chest head and neck did not yield any acute pathology EKG:NSR w.o ST elevations/depressions Hospital course: mentions pain is mostly over his head/forehead, left side of his neck and left side of chest: mentions pain has improved since given the Morphine Also endorses urinating more frequently with increasing bouts of diarrhea Denies any fevers, chills, BA. Of note pt does have at baseline, chronic loss of sensation of both left upper extremity (right hand dominant) and left lower extremity secondary to previous work-related traumas. Mentions vision has been worsening ans states he sees floaters and dark spots at times. Denies any recent head trauma, falls or over exertion Day of discharge: Labs were mostly unremarkable except for an A1c of 6.5 Pain controlled with Tordol Discussed results and discussed diet with patient.; sent home with Metformin, pantoprazole and diclofenac Advised to follow up with PCP and outpatient neurology pt requested discharge discharged in stable condition - Discharge Data Discharge Date: 12/21/19 Discharge Disposition: Home, Self-Care 01 Condition: Good - Referral to Home Health Primary Care Physician: PCP None - Patient Instructions Diet: Diabetic Diet Notify Provider of: Fever - Discharge Plan *PRESCRIPTION DRUG MONITORING PROGRAM REVIEWED*: No *COPY OF PRESCRIPTION DRUG MONITORING REPORT IN PATIENT LETTY: No Prescriptions/Med Rec: Diclofenac Sodium 25 mg PO BID PRN 7 Days #14 tablet. PRN Reason: Headache metFORMIN [Glucophage] 500 mg PO DAILY 30 Days #30 tab Omeprazole 20 mg PO DAILY 7 Days #7 capsule. Home Medications: Home Meds Diclofenac Sodium 25 mg PO BID PRN 7 Days #14 tablet. 12/21/19 [Rx] Omeprazole 20 mg PO DAILY 7 Days #7 capsule. 12/21/19 [Rx] metFORMIN [Glucophage] 500 mg PO DAILY 30 Days #30 tab 12/21/19 [Rx] Patient Handouts: Omeprazole; Sodium Bicarbonate oral capsule, Nonspecific Chest Pain, Adult, Vain-vv-Erha, Diclofenac sodium extended-release tablets, Omeprazole tablets (OTC) Referrals: Zaria Woo MD [Physician] - Becca Ortiz MD [Resident] - - Discharge Summary/Plan Comment DC Time >30 min.: No - Patient Data Vitals - Most Recent: Last Vital Signs Temp 97.9 F 12/21/19 08:06 Pulse 69 12/21/19 08:06 Resp 14 12/21/19 08:06 BP 103/63 12/21/19 08:06 Pulse Ox 98 12/21/19 08:06 Weight - Most Recent: 95.708 kg I&O - Last 24 hours: Intake & Output 12/20/19 12/21/19 12/21/19 22:59 06:59 14:59 Intake Total 240 Output Total 0 Balance 240 Lab Results - Last 24 hrs: Laboratory Results - last 24 hr 12/20/19 12/20/19 12/20/19 Range/Units 13:47 13:47 13:47 WBC 6.47 (4.0-11.0) K/uL RBC 4.28 L (4.50-5.90) M/uL Hgb 13.8 (13.0-17.0) g/dL Hct 41.2 (38.0-50.0) % MCV 96.3 (80.0-98.0) fL MCH 32.2 H (27.0-32.0) pg MCHC 33.5 (31.0-37.0) g/dL RDW Std Deviation 46.9 (28.0-62.0) fl RDW Coeff of Elena 13 (11.0-15.0) % Plt Count 242 (150-400) K/uL MPV 9.00 (7.40-12.00) fL Neut % (Auto) 54.3 (48.0-80.0) % Lymph % (Auto) 36.2 (16.0-40.0) % [place] % (Auto) 7.9 (0.0-15.0) % Eos % (Auto) 1.4 (0.0-7.0) % Baso % (Auto) 0.2 (0.0-1.5) % Neut # (Auto) 3.5 (1.4-5.7) K/uL Lymph # (Auto) 2.3 (0.6-2.4) K/uL [place] # (Auto) 0.5 (0.0-0.8) K/uL Eos # (Auto) 0.1 (0.0-0.7) K/uL Baso # (Auto) 0.0 (0.0-0.1) K/uL Nucleated RBC % 0.0 /100WBC Nucleated RBCs # 0 K/uL ESR 17 (0-19) mm/hr Sodium 143 (136-148) mmol/L Potassium 4.2 (3.5-5.1) mmol/L Chloride 105 (98-107) mmol/L Carbon Dioxide 25.9 (21.0-32.0) mmol/L BUN 14 (7.0-18.0) mg/dL Creatinine 1.2 (0.8-1.3) mg/dL Est Cr Clr Drug Dosing 68.09 mL/min Estimated GFR (MDRD) > 60.0 ml/min Glucose 103 (74-106) mg/dL POC Glucose (60-110) mg/dL Hemoglobin A1c (4.5-6.2) % Calcium 9.3 (8.5-10.1) mg/dL Total Bilirubin 0.5 (0.2-1.0) mg/dL AST 24 (15-37) IU/L ALT 56 (14-63) IU/L Alkaline Phosphatase 94 (46-116) U/L Troponin I < 0.050 (0.000-0.056) ng/mL C-Reactive Protein (0.00-0.90) mg/dL Total Protein 7.7 (6.4-8.2) g/dL Albumin 3.8 (3.4-5.0) g/dL Globulin 3.9 (2.6-4.0) g/dL Albumin/Globulin Ratio 1.0 (0.9-1.6) Triglycerides (0-200) mg/dL Cholesterol (50-200) mg/dL LDL Cholesterol, Calc (60-180) mg/dL VLDL Cholesterol (5-55) mg/dL HDL Cholesterol (40-60) mg/dL Cholesterol/HDL Ratio (3.3-6.0) TSH 3rd Generation (0.36-3.74) uIU/mL Urine Color Urine Appearance Urine pH (5.0-8.0) Ur Specific [place] (1.001-1.035) Urine Protein (NEGATIVE) mg/dL Urine Glucose (UA) (NEGATIVE) mg/dL Urine Ketones (NEGATIVE) mg/dL Urine Occult Blood (NEGATIVE) Urine Nitrite (NEGATIVE) Urine Bilirubin (NEGATIVE) Urine Urobilinogen (<2.0) EU/dL Ur Leukocyte Esterase (NEGATIVE) SARS-CoV-2 RNA (MARIANA) (NEGATIVE) 12/20/19 12/20/19 12/20/19 Range/Units 13:47 14:22 17:00 WBC (4.0-11.0) K/uL RBC (4.50-5.90) M/uL Hgb (13.0-17.0) g/dL Hct (38.0-50.0) % MCV (80.0-98.0) fL MCH (27.0-32.0) pg MCHC (31.0-37.0) g/dL RDW Std Deviation (28.0-62.0) fl RDW Coeff of Elena (11.0-15.0) % Plt Count (150-400) K/uL MPV (7.40-12.00) fL Neut % (Auto) (48.0-80.0) % Lymph % (Auto) (16.0-40.0) % [place] % (Auto) (0.0-15.0) % Eos % (Auto) (0.0-7.0) % Baso % (Auto) (0.0-1.5) % Neut # (Auto) (1.4-5.7) K/uL Lymph # (Auto) (0.6-2.4) K/uL [place] # (Auto) (0.0-0.8) K/uL Eos # (Auto) (0.0-0.7) K/uL Baso # (Auto) (0.0-0.1) K/uL Nucleated RBC % /100WBC Nucleated RBCs # K/uL ESR (0-19) mm/hr Sodium (136-148) mmol/L Potassium (3.5-5.1) mmol/L Chloride (98-107) mmol/L Carbon Dioxide (21.0-32.0) mmol/L BUN (7.0-18.0) mg/dL Creatinine (0.8-1.3) mg/dL Est Cr Clr Drug Dosing mL/min Estimated GFR (MDRD) ml/min Glucose (74-106) mg/dL POC Glucose (60-110) mg/dL Hemoglobin A1c 6.5 H (4.5-6.2) % Calcium (8.5-10.1) mg/dL Total Bilirubin (0.2-1.0) mg/dL AST (15-37) IU/L ALT (14-63) IU/L Alkaline Phosphatase (46-116) U/L Troponin I (0.000-0.056) ng/mL C-Reactive Protein (0.00-0.90) mg/dL Total Protein (6.4-8.2) g/dL Albumin (3.4-5.0) g/dL Globulin (2.6-4.0) g/dL Albumin/Globulin Ratio (0.9-1.6) Triglycerides (0-200) mg/dL Cholesterol (50-200) mg/dL LDL Cholesterol, Calc (60-180) mg/dL VLDL Cholesterol (5-55) mg/dL HDL Cholesterol (40-60) mg/dL Cholesterol/HDL Ratio (3.3-6.0) TSH 3rd Generation (0.36-3.74) uIU/mL Urine Color YELLOW Urine Appearance CLEAR Urine pH 5.5 (5.0-8.0) Ur Specific [place] 1.025 (1.001-1.035) Urine Protein NEGATIVE (NEGATIVE) mg/dL Urine Glucose (UA) NEGATIVE (NEGATIVE) mg/dL Urine Ketones NEGATIVE (NEGATIVE) mg/dL Urine Occult Blood NEGATIVE (NEGATIVE) Urine Nitrite NEGATIVE (NEGATIVE) Urine Bilirubin NEGATIVE (NEGATIVE) Urine Urobilinogen 0.2 (<2.0) EU/dL Ur Leukocyte Esterase NEGATIVE (NEGATIVE) SARS-CoV-2 RNA (MARIANA) NEGATIVE (NEGATIVE) 12/20/19 12/20/19 12/20/19 Range/Units 18:05 18:05 20:39 WBC (4.0-11.0) K/uL RBC (4.50-5.90) M/uL Hgb (13.0-17.0) g/dL Hct (38.0-50.0) % MCV (80.0-98.0) fL MCH (27.0-32.0) pg MCHC (31.0-37.0) g/dL RDW Std Deviation (28.0-62.0) fl RDW Coeff of Elena (11.0-15.0) % Plt Count (150-400) K/uL MPV (7.40-12.00) fL Neut % (Auto) (48.0-80.0) % Lymph % (Auto) (16.0-40.0) % [place] % (Auto) (0.0-15.0) % Eos % (Auto) (0.0-7.0) % Baso % (Auto) (0.0-1.5) % Neut # (Auto) (1.4-5.7) K/uL Lymph # (Auto) (0.6-2.4) K/uL [place] # (Auto) (0.0-0.8) K/uL Eos # (Auto) (0.0-0.7) K/uL Baso # (Auto) (0.0-0.1) K/uL Nucleated RBC % /100WBC Nucleated RBCs # K/uL ESR (0-19) mm/hr Sodium (136-148) mmol/L Potassium (3.5-5.1) mmol/L Chloride (98-107) mmol/L Carbon Dioxide (21.0-32.0) mmol/L BUN (7.0-18.0) mg/dL Creatinine (0.8-1.3) mg/dL Est Cr Clr Drug Dosing mL/min Estimated GFR (MDRD) ml/min Glucose (74-106) mg/dL POC Glucose (60-110) mg/dL Hemoglobin A1c (4.5-6.2) % Calcium (8.5-10.1) mg/dL Total Bilirubin (0.2-1.0) mg/dL AST (15-37) IU/L ALT (14-63) IU/L Alkaline Phosphatase (46-116) U/L Troponin I < 0.050 < 0.050 (0.000-0.056) ng/mL C-Reactive Protein <0.20 (0.00-0.90) mg/dL Total Protein (6.4-8.2) g/dL Albumin (3.4-5.0) g/dL Globulin (2.6-4.0) g/dL Albumin/Globulin Ratio (0.9-1.6) Triglycerides 190 (0-200) mg/dL Cholesterol 183 (50-200) mg/dL LDL Cholesterol, Calc 101 (60-180) mg/dL VLDL Cholesterol 38 (5-55) mg/dL HDL Cholesterol 44 (40-60) mg/dL Cholesterol/HDL Ratio 4.2 (3.3-6.0) TSH 3rd Generation 3.52 (0.36-3.74) uIU/mL Urine Color Urine Appearance Urine pH (5.0-8.0) Ur Specific [place] (1.001-1.035) Urine Protein (NEGATIVE) mg/dL Urine Glucose (UA) (NEGATIVE) mg/dL Urine Ketones (NEGATIVE) mg/dL Urine Occult Blood (NEGATIVE) Urine Nitrite (NEGATIVE) Urine Bilirubin (NEGATIVE) Urine Urobilinogen (<2.0) EU/dL Ur Leukocyte Esterase (NEGATIVE) SARS-CoV-2 RNA (MARIANA) (NEGATIVE) 12/21/19 12/21/19 12/21/19 Range/Units 06:05 06:05 07:07 WBC 5.42 (4.0-11.0) K/uL RBC 4.10 L (4.50-5.90) M/uL Hgb 13.1 (13.0-17.0) g/dL Hct 39.7 (38.0-50.0) % MCV 96.8 (80.0-98.0) fL MCH 32.0 (27.0-32.0) pg MCHC 33.0 (31.0-37.0) g/dL RDW Std Deviation 47.0 (28.0-62.0) fl RDW Coeff of Elena 13 (11.0-15.0) % Plt Count 206 (150-400) K/uL MPV 8.90 (7.40-12.00) fL Neut % (Auto) 43.5 L (48.0-80.0) % Lymph % (Auto) 45.0 H (16.0-40.0) % [place] % (Auto) 8.7 (0.0-15.0) % Eos % (Auto) 2.6 (0.0-7.0) % Baso % (Auto) 0.2 (0.0-1.5) % Neut # (Auto) 2.4 (1.4-5.7) K/uL Lymph # (Auto) 2.4 (0.6-2.4) K/uL [place] # (Auto) 0.5 (0.0-0.8) K/uL Eos # (Auto) 0.1 (0.0-0.7) K/uL Baso # (Auto) 0.0 (0.0-0.1) K/uL Nucleated RBC % 0.0 /100WBC Nucleated RBCs # 0 K/uL ESR (0-19) mm/hr Sodium 141 (136-148) mmol/L Potassium 4.1 (3.5-5.1) mmol/L Chloride 107 (98-107) mmol/L Carbon Dioxide 26.5 (21.0-32.0) mmol/L BUN 16 (7.0-18.0) mg/dL Creatinine 1.1 (0.8-1.3) mg/dL Est Cr Clr Drug Dosing 74.28 mL/min Estimated GFR (MDRD) > 60.0 ml/min Glucose 115 H (74-106) mg/dL POC Glucose 93 (60-110) mg/dL Hemoglobin A1c (4.5-6.2) % Calcium 8.5 (8.5-10.1) mg/dL Total Bilirubin (0.2-1.0) mg/dL AST (15-37) IU/L ALT (14-63) IU/L Alkaline Phosphatase (46-116) U/L Troponin I (0.000-0.056) ng/mL C-Reactive Protein (0.00-0.90) mg/dL Total Protein (6.4-8.2) g/dL Albumin (3.4-5.0) g/dL Globulin (2.6-4.0) g/dL Albumin/Globulin Ratio (0.9-1.6) Triglycerides (0-200) mg/dL Cholesterol (50-200) mg/dL LDL Cholesterol, Calc (60-180) mg/dL VLDL Cholesterol (5-55) mg/dL HDL Cholesterol (40-60) mg/dL Cholesterol/HDL Ratio (3.3-6.0) TSH 3rd Generation (0.36-3.74) uIU/mL Urine Color Urine Appearance Urine pH (5.0-8.0) Ur Specific [place] (1.001-1.035) Urine Protein (NEGATIVE) mg/dL Urine Glucose (UA) (NEGATIVE) mg/dL Urine Ketones (NEGATIVE) mg/dL Urine Occult Blood (NEGATIVE) Urine Nitrite (NEGATIVE) Urine Bilirubin (NEGATIVE) Urine Urobilinogen (<2.0) EU/dL Ur Leukocyte Esterase (NEGATIVE) SARS-CoV-2 RNA (MARIANA) (NEGATIVE) Med Orders - Current: Current Medications Acetaminophen (Tylenol Extra Strength) 500 mg PO Q6H PRN PRN Reason: Pain Insulin [facility] ([facility]) [facility] Protocol Last Admin: 12/21/19 08:07 Dose: Not Given Documented by: Ketorolac Tromethamine (Toradol) 15 mg IVPUSH Q4H PRN PRN Reason: Headache/Pain Stop: 12/25/19 23:33 Last Admin: 12/21/19 09:55 Dose: 15 mg Documented by: Melatonin (Melatonin) 3 mg PO BEDTIME PRN PRN Reason: Insomnia Last Admin: 12/20/19 21:48 Dose: 3 mg Documented by: Pantoprazole Sodium (Protonix) 40 mg PO DAILY PENDING SALE TO [facility] Last Admin: 12/21/19 09:52 Dose: 40 mg Documented by: Sodium Chloride (Saline Flush) 10 ml FLUSH ASDIRECTED PRN PRN Reason: Keep Vein Open Last Admin: 12/20/19 15:16 Dose: 10 ml Documented by: Sodium Chloride (Saline Flush) 2.5 ml FLUSH ASDIRECTED PRN PRN Reason: Keep Vein Open Last Admin: 12/20/19 15:16 Dose: 2.5 ml Documented by: Discontinued Medications Aspirin (Aspirin) 324 mg PO ONETIME ONE Stop: 12/20/19 16:47 Last Admin: 12/20/19 16:55 Dose: 324 mg Documented by: Enoxaparin Sodium (Lovenox) 40 mg SUBCUT Q24H SANDI Last Admin: 12/20/19 19:04 Dose: 40 mg Documented by: Iopamidol (Isovue Multipack-370 (76%)) 100 ml IVPUSH ONETIME ONE Stop: 12/20/19 16:13 Last Admin: 12/20/19 16:14 Dose: 100 ml Documented by: Ketorolac Tromethamine (Toradol) 30 mg IVPUSH ONETIME ONE Stop: 12/20/19 20:00 Last Admin: 12/20/19 20:44 Dose: 30 mg Documented by: Lorazepam (Ativan) 1 mg IVPUSH ONETIME ONE Stop: 12/20/19 23:36 Last Admin: 12/21/19 02:00 Dose: Not Given Documented by: Morphine Sulfate (Morphine) 2 mg IVPUSH ONETIME ONE Stop: 12/20/19 16:47 Last Admin: 12/20/19 16:55 Dose: 2 mg Documented by:
== END 2019-12-21 13:35 | disposition home or self-care (01) ==
LOC: MW.ED 13:03 → EDBD 13:03 → MW.MS 17:10
PROVIDERS: ADMIT Student in an Organized Health Care Education/Training Program; ATTEND Student in an Organized Health Care Education/Training Program
DX: R51 Headache (principal); R07.9 Chest pain, unspecified; E11.9 Type 2 diabetes mellitus without complications; E66.9 Obesity, unspecified; M79.2 Neuralgia and neuritis, unspecified; Z20.828 Contact with and (suspected) exposure to other viral communicable diseases; Z91.013 Allergy to seafood; Z87.828 Personal history of other (healed) physical injury and trauma; Z68.33 Body mass index [BMI] 33.0-33.9, adult
CPT/HCPCS: 36415; 70450; 70496; 70498; 71045; 80048; 80053; 80061; 81003; 82962; 83036; 84443; 84484; 85025; 85652; 86140; 87635; 93005; 96374; 99285; A9270; J1650; J1885; J2270; Q9967; U0002

== ENCOUNTER 2019-12-24 09:42 | Emergency (ER) | payer MEDICAID ==
[2019-12-24] MEDS ORDERED: Sodium Chloride 0.9% 2.5 ML Syringe FLUSH PRN (09:51)
[2019-12-24] MEDS ORDERED: Sodium Chloride 0.9% 10 ML Syringe FLUSH PRN (09:51)
[2019-12-24] MEDS ORDERED: Morphine 4 MG/ML Syringe IVPUSH ONE (10:09)
[2019-12-24] MEDS ORDERED: Ondansetron 4 MG/2 ML SDV IVPUSH ONE (10:09)
[2019-12-24 10:38] LABS: BLOOD UREA NITROGEN,BUN 22 mg/dL (7.0-18.0); CARBON DIOXIDE,CO2 25.3 mmol/L (21.0-32.0); CHLORIDE,CL 106 mmol/L (98-107); GLUCOSE RANDOM 140 mg/dL (74-106); POTASSIUM,K 4.5 mmol/L (3.5-5.1); SODIUM,NA 141 mmol/L (136-148)
--- NOTE | 2019-12-24 10:48 | EDM.PDOC ---
ED HPI GENERAL MEDICAL PROBLEM - General Chief Complaint: Chest Pain Stated Complaint: CHEST PAIN Time Seen by Provider: 12/24/19 10:00 - History of Present Illness INITIAL COMMENTS - FREE TEXT/NARRATIVE: 49-year-old male with a history of left arm and leg paresthesias and nerve damage related to crush injury sustained at work several years ago and a relatively new diagnosis of diabetes started on metformin. He is presenting w ith sharp throbbing palpitation chest pain in the left chest that radiates up the left neck into the left head. No vertigo. No recent trauma. No shortness of breath but associated profound weakness. Patient was seen for similar episode 3 days ago. At that time he had a normal CT brain a CT angios head and neck he was admitted for serial enzymes which returned as normal he was discharged on his diabetic medication and instructed to follow-up with his primary care provider for consideration for Holter monitor. Patient reports he was doing relatively well this morning he had some very minimal chest discomfort but then had another episode of significant left-sided chest pain with radiation as described above. He reports that his pain is moderate without clear exacerbating or alleviating factors and is not as severe as it was on Monday. Left Chest Pain Score (Numeric/FACES): 8 - Related Data Allergies Allergy/AdvReac Type Severity Reaction Status Date / Time shrimp Allergy Swelling Verified 12/20/19 19:10 Home Meds: Home Meds Omeprazole 20 mg PO DAILY 7 Days #7 capsule. 12/21/19 [Rx] metFORMIN [Glucophage] 500 mg PO DAILY 30 Days #30 tab 12/21/19 [Rx] Ketorolac [Toradol] 10 mg PO TID 4 Days #12 tab 12/24/19 [Rx] diazePAM [Valium] 5 mg PO BEDTIME PRN 5 Days #5 tablet 12/24/19 [Rx] Past Medical History HEENT History: Reports: Other (See Below) Other HEENT History: frequent lock jaw Musculoskeletal History: Reports: None - Infectious Disease History Infectious Disease History: Reports: None - Past Surgical History HEENT Surgical History: Reports: Other (See Below) Other HEENT Surgeries/Procedures: R jaw Musculoskeletal Surgical History: Reports: Other (See Below) Other Musculoskeletal Surgeries/Procedures:: work related injury to L arm that led to nerve damage Social & Family History - Family History Family Medical History: Noncontributory - Tobacco Use Smoking Status *Q: Never Smoker Second Hand Smoke Exposure: No - Caffeine Use Caffeine Use: Reports: None - Recreational Drug Use Recreational Drug Use: No ED ROS GENERAL - Review of Systems Review Of Systems: See Below Free Text/Narrative/Comment: General: No fever. Skin: No rash. Eyes: No vision problems. ENT: No sore throat. Neck: No neck stiffness. Respiratory: No shortness of breath. Cardiac: Per HPI Gastrointestinal: No nausea, vomiting or abdominal pain. Urinary: No dysuria. Musculoskeletal: No myalgias/arthralgias. Neurologic: Per HPI ED EXAM, GENERAL - Physical Exam Exam: See Below Free Text/Narrative:: General Appearance: No acute distress, appears comfortable Skin: No rash HEENT: Normocephalic/atraumatic, sclera anicteric, mucous membranes moist Neck: Normal range of motion Chest and Lungs: Bilateral breath sounds, clear to auscultation, significant left-sided chest tenderness Cardiovascular: Regular rate and rhythm, no murmur Abdomen: Epigastric tenderness without guarding or rebound Back: Normal Musculoskeletal: No edema or tenderness Neurologic: Awake, alert, no obvious deficits, moving all extremities Psychiatric: Appropriate, cooperative Course - Vital Signs Last Recorded V/S: Last Vital Signs Temp 96.8 F L 12/24/19 09:49 Pulse 66 12/24/19 11:55 Resp 16 12/24/19 11:55 BP 107/73 12/24/19 11:55 Pulse Ox 95 12/24/19 11:55 - Orders/Labs/Meds Orders: Active Orders 24 hr Category Date Time Status Sodium Chloride 0.9% [Saline Flush] Med 12/24/19 09:51 Active 10 ml FLUSH ASDIRECTED PRN Sodium Chloride 0.9% [Saline Flush] Med 12/24/19 09:51 Active 2.5 ml FLUSH ASDIRECTED PRN Saline Lock Insert [OM.PC] Stat Oth 12/24/19 09:51 Ordered Medication Orders Sodium Chloride (Saline Flush) 10 ml FLUSH ASDIRECTED PRN PRN Reason: Keep Vein Open Last Admin: 12/24/19 10:16 Dose: 10 ml Documented by: VIALMEL Sodium Chloride (Saline Flush) 2.5 ml FLUSH ASDIRECTED PRN PRN Reason: Keep Vein Open Last Admin: 12/24/19 10:16 Dose: 2.5 ml Documented by: MARCI Labs: Laboratory Tests 12/24/19 12/24/19 12/24/19 Range/Units 09:45 09:45 09:45 WBC 5.77 (4.0-11.0) K/uL RBC 4.33 L (4.50-5.90) M/uL Hgb 14.1 (13.0-17.0) g/dL Hct 42.1 (38.0-50.0) % MCV 97.2 (80.0-98.0) fL MCH 32.6 H (27.0-32.0) pg MCHC 33.5 (31.0-37.0) g/dL RDW Std Deviation 47.6 (28.0-62.0) fl RDW Coeff of Elena 13 (11.0-15.0) % Plt Count 223 (150-400) K/uL MPV 9.20 (7.40-12.00) fL Neut % (Auto) 44.7 L (48.0-80.0) % Lymph % (Auto) 43.3 H (16.0-40.0) % [place] % (Auto) 9.2 (0.0-15.0) % Eos % (Auto) 2.6 (0.0-7.0) % Baso % (Auto) 0.2 (0.0-1.5) % Neut # (Auto) 2.6 (1.4-5.7) K/uL Lymph # (Auto) 2.5 H (0.6-2.4) K/uL [place] # (Auto) 0.5 (0.0-0.8) K/uL Eos # (Auto) 0.2 (0.0-0.7) K/uL Baso # (Auto) 0.0 (0.0-0.1) K/uL Nucleated RBC % 0.0 /100WBC Nucleated RBCs # 0 K/uL D-Dimer, Quantitative 0.24 (0.0-0.50) mg/L FEU Sodium 141 (136-148) mmol/L Potassium 4.5 (3.5-5.1) mmol/L Chloride 106 (98-107) mmol/L Carbon Dioxide 25.3 (21.0-32.0) mmol/L BUN 22 H (7.0-18.0) mg/dL Creatinine 1.1 (0.8-1.3) mg/dL Est Cr Clr Drug Dosing 74.28 mL/min Estimated GFR (MDRD) > 60.0 ml/min Glucose 140 H (74-106) mg/dL Calcium 9.1 (8.5-10.1) mg/dL Total Bilirubin 0.3 (0.2-1.0) mg/dL AST 32 (15-37) IU/L ALT 71 H (14-63) IU/L Alkaline Phosphatase 92 (46-116) U/L Troponin I < 0.050 (0.000-0.056) ng/mL Total Protein 7.6 (6.4-8.2) g/dL Albumin 3.7 (3.4-5.0) g/dL Globulin 3.9 (2.6-4.0) g/dL Albumin/Globulin Ratio 0.9 (0.9-1.6) Meds: Medications Generic Name Dose Route Start Last Admin Trade Name Hao PRN Reason Stop Dose Admin Sodium Chloride 10 ml 12/24/19 09:51 12/24/19 10:16 Saline Flush FLUSH 10 ml ASDIRECTED PRN Administration Keep Vein Open Sodium Chloride 2.5 ml 12/24/19 09:51 12/24/19 10:16 Saline Flush FLUSH 2.5 ml ASDIRECTED PRN Administration Keep Vein Open Discontinued Medications Generic Name Dose Route Start Last Admin Trade Name Hao PRN Reason Stop Dose Admin Diazepam 5 mg 12/24/19 12:00 12/24/19 12:05 Valium PO 12/24/19 12:01 5 mg ONETIME ONE Administration Ketorolac Tromethamine 30 mg 12/24/19 12:00 12/24/19 12:06 Toradol IVPUSH 12/24/19 12:01 30 mg ONETIME ONE Administration Morphine Sulfate 4 mg 12/24/19 10:12/24/19 10:16 Morphine IVPUSH 12/24/19 10:10 4 mg ONETIME ONE Administration Ondansetron HCl 4 mg 12/24/19 10:09 12/24/19 10:16 Zofran IVPUSH 12/24/19 10:10 4 mg ONETIME ONE Administration Departure - Departure Time of Disposition: 13:59 Disposition: Home, Self-Care 01 Condition: Good Clinical Impression: Torticollis, acute - Discharge Information *PRESCRIPTION DRUG MONITORING PROGRAM REVIEWED*: Yes *COPY OF PRESCRIPTION DRUG MONITORING REPORT IN PATIENT LETTY: Not Applicable Prescriptions: Ketorolac [Toradol] 10 mg PO TID 4 Days #12 tab diazePAM [Valium] 5 mg PO BEDTIME PRN 5 Days #5 tablet PRN Reason: neck pain Instructions: Acute Torticollis, Adult Referrals: Xu Shipman MD [Primary Care Provider] - 1 Week Forms: ED Department Discharge Sepsis Event Note (ED) - Evaluation Sepsis Screening Result: No Definite Risk - Focused Exam Vital Signs: Vital Signs Temp Pulse Resp BP Pulse Ox 12/24/19 11:55 66 16 107/73 95 12/24/19 10:55 70 13 120/77 94 L 12/24/19 09:49 96.8 F L 78 20 138/92 H 97 - My Orders Last 24 Hours: My Active Orders 12/24/19 09:51 Sodium Chloride 0.9% [Saline Flush] 10 ml FLUSH ASDIRECTED PRN Sodium Chloride 0.9% [Saline Flush] 2.5 ml FLUSH ASDIRECTED PRN Saline Lock Insert [OM.PC] Stat - Assessment/Plan Last 24 Hours: My Active Orders 12/24/19 09:51 Sodium Chloride 0.9% [Saline Flush] 10 ml FLUSH ASDIRECTED PRN Sodium Chloride 0.9% [Saline Flush] 2.5 ml FLUSH ASDIRECTED PRN Saline Lock Insert [OM.PC] Stat Assessment:: 49-year-old male who is presenting with left-sided chest pain radiating up into the neck. Associated with palpitations as well. It is reproducible with direct pressure he does have a history of nerve issues related to his prior crush injury and musculoskeletal related pain nerve related pain is possible. ACS carefully considered. His EKG is without any ischemia only a few days ago he had an admission and enzymes were done and were negative plan was for discharge for Holter and outpatient stress test. PE considered d-dimer negative vital signs are good no signs of pneumonia pneumothorax patient had CT brain and CT angios head and neck these were negative. Aortic dissection considered but pain is not tearing it does not radiate to the back and the patient does have neck pain and had no signs of dissection on neck CT during his initial presentation. Patient given morphine Zofran d-dimer is negative. On reassessment the patient reports significant left lateral and posterior neck pain worsens when he turns his head to the left and improves if he allows his head to relax to the right he has tenderness along the lateral neck musculature. Given the negative vascular work-up recently would not reimage at this point. Patient states that the pain is most significant in his neck at this point. He has no trismus he has no abnormal swelling in the submental or sublingual region he has nothing that suggest deep space infection of the neck. Neck torticollis may be part of what is causing his symptoms we will add Toradol and Valium and reassess. Patient had complete symptom resolution with Toradol and Valium I suspect torticollis is the primary cause of his symptoms short home prescription provided and follow-up with primary care. Return precaution discussed and understood.
--- NOTE | 2019-12-24 11:07 | CR ---
Chest: 2 views of the chest were obtained. Comparison: Prior chest x-ray of 12/20/19. Heart size and mediastinum are within normal limits for the patient's age. Lungs are clear no acute parenchymal change. Bony structures appear within normal limits for the patient's age. Impression: 1. Nothing acute is seen on 2 view chest x-ray. Diagnostic code #1 This report was dictated in MDT
[2019-12-24] MEDS ORDERED: Ketorolac 30 MG/ML SDV IVPUSH ONE (12:00)
[2019-12-24] MEDS ORDERED: Diazepam 2 MG Tab PO ONE (12:00)
== END 2019-12-24 14:15 | disposition home or self-care (01) ==
LOC: MW.ED 09:42
DX: M43.6 Torticollis (principal); E11.9 Type 2 diabetes mellitus without complications; R07.9 Chest pain, unspecified; Z79.84 Long term (current) use of oral hypoglycemic drugs; Z91.013 Allergy to seafood
CPT/HCPCS: 36415; 71046; 80053; 84484; 85025; 85379; 96374; 96375; 99285; A9270; J1885; J2270; J2405; 99283

== ENCOUNTER 2020-03-18 10:55 | Emergency (ER) | payer MEDICAID ==
[2020-03-18] MEDS ORDERED: Aspirin 81 MG Tab.Chew PO ONE (11:03)
[2020-03-18] MEDS ORDERED: Sodium Chloride 0.9% 2.5 ML Syringe FLUSH PRN (11:03)
[2020-03-18] MEDS ORDERED: Sodium Chloride 0.9% 10 ML Syringe FLUSH PRN (11:03)
[2020-03-18] MEDS ORDERED: Morphine 4 MG/ML Syringe IVPUSH ONE (11:29)
--- NOTE | 2020-03-18 11:29 | EDM.PDOC ---
ED HPI GENERAL MEDICAL PROBLEM - General Chief Complaint: Chest Pain Stated Complaint: CHEST PAIN Time Seen by Provider: 03/18/20 11:05 Source of Information: Reports: Patient History Limitations: Reports: No Limitations - History of Present Illness INITIAL COMMENTS - FREE TEXT/NARRATIVE: HISTORY AND PHYSICAL: History of present illness: Patient is a 49-year-old male who presents to the emergency room with complaints of left anterior chest pain that radiates into his left neck and left shoulder. He states he has been having this pain since December. He was seen on 020 for this pain and was admitted with new diagnosis of diabetes was started on Metformin. He returned to the emergency room on 12/24/2019 for similar symptoms and had been placed on a Holter monitor. Holter monitor shows no significant findings. Since those ER visits he has seen Dr. Devries who requested an MRI that was done on 03/16/2020. He also has seen our presidential helicopter crew chief who did an echocardiogram, this was unremarkable. Patient states he went to Dr. Greco's this morning who referred him to come to the emergency room as he states he was having chest pain. Patient does state that he has had this pain since December, states it has been worse over the past 1 week. Pain is aggravated with physical activity and or lifting anything using his left upper extremity. He is rubbing the pectoral muscle and states this does provide some pain relief. Patient denies any fever, chills, headache, change in vision, syncope or near syncope. Denies any back pain, shortness of breath or cough. Denies any abdominal pain, nausea, vomiting, diarrhea, constipation or dysuria. Has not noted any blood in urine or stool. Patient has been eating and drinking appropriately. Review of systems: As per history of present illness and below otherwise all systems reviewed and negative. Past medical history: As per history of present illness and as reviewed below otherwise noncontributory. Surgical history: As per history of present illness and as reviewed below otherwise noncontributory. Social history: See social history for further information Family history: As per history of present illness and as reviewed below otherwise noncontributory. Physical exam: General: Well developed and well nourished 49 year old male. Alert and orientated x 3. Nontoxic in appearance and in no acute distress. Vital signs are stable and have been reviewed by me. Nursing notes were reviewed. HEENT: Atraumatic, normocephalic, pupils equal and reactive bilaterally, negative for conjunctival pallor or scleral icterus, mucous membranes moist, TMs normal bilaterally, throat clear, neck supple, nontender, trachea midline. No drooling or trismus noted. No meningeal signs. No hot potato voice noted. Lungs: Clear to auscultation, breath sounds equal bilaterally, left anterior chest tender to palpation into left shoulder girdle and trapezius. Normal work of breathing, no accessory muscles used. Heart: S1S2, regular rate and rhythm without overt murmur Abdomen: Soft, nondistended, nontender. Negative for masses or hepatosplenomegaly. Negative for costovertebral tenderness. Pelvis: Stable nontender. Skin: Intact, warm, dry. No lesions or rashes noted. Hematologic: No petechiae or purpra. Mucosa appropriate color and normal nail bed color and refill. Extremities: Atraumatic, moves all extremities per self without difficulty or deficits, negative for cords or calf pain. Neurovascular unremarkable. Neuro: Awake, alert, oriented. Cranial nerves II through XII unremarkable. Cerebellum unremarkable. Motor and sensory unremarkable throughout. Exam nonfocal. Psychiatric: Mood and affect are appropriate. Normal thought process. Answering questions appropriately. Notes: 03/16/20: MRI of the cervical spine shows mild central canal and moderate to severe right foraminal narrowing at C5-6. Mild degenerative changes in the remainder of the cervical spine. Recent echocardiogram shows normal findings. No significant findings on today's evaluation and diagnostics. [place] Criteria 0.0 LOW risk. HEART score 1 LOW risk. I do not feel that the patient requires admission as he has had this pain intermittently over the past 3 months and has seen our presidential helicopter crew chief with continued care. I spoke with Dr Devries, who states she had initially intended to do some injections for his chronic neck pain, but patient was complaining of severe chest pain that she recommended he come to the emergency room. She states that the patient has been going back and forth between her and the presidential helicopter crew chief. She states the presidential helicopter crew chief did have plans on doing further studies. Once the patient's chest pain has resolved/been further investigated he can call and set up a follow-up appointment for his chronic neck pain. Spoke with Dr Jameson's nurse's, he is currently out of town, patient has multiple medications that he has not filled. When the patient was asked about this he states that he is "taking some of them" but he is unable to "...afford the creams. Sometimes I am too tired to go and get my meds". We discussed the importance of taking medications that are prescribed to him, in talking to his provider if he is unable to afford certain medications. Nursing staff was able to set up a follow-up appointment for the patient. He did not get relief with the morphine. I did place a Lidoderm patch to the muscular area that is causing pain. Since the patient has multiple medications that are at the pharmacy waiting for pickup I will not prescribe any new medications. I did inform him that the NSAIDs will likely help his discomfort but he needs further care and management with his primary care, presidential helicopter crew chief and the pain specialist. I have talked with the patient about today's findings, in addition to providing specific details for plan of care. Reassessment at the time of disposition demonstrates that the patient is in no acute distress. The patient is stable for discharge, counseling was provided and we discussed in great detail signs and symptoms that would prompt them to return to the Emergency Department. Medication, follow up and supportive care measures were reviewed and discussed. Voices understanding and is agreeable to plan of care. Denies any further questions or concerns at this time. Diagnostics: CBC, CMP, Troponin, EKG, CXR Therapeutics: Aspirin, Morphine, Lidoderm Patch Prescription: None Impression: Chest pain, nonspecific Plan: 1. Today your lab work, EKG, and chest x-ray was normal. 2. You have many medications that have been prescribed for you that you haven't filled or tried yet. You have a follow up appointment with Dr Enrique (presidential helicopter crew chief) and you can arrange to see Dr Kumar (pain specialist) once your chest pain has been resolved/followed up with Dr Enrique. 3. We encourage you to follow up with recommended specialist in the next few days for re-evaluation and further care/management. If your symptoms should worsen, new symptoms develop or any of the signs and symptoms we discussed should arise please return to the emergency room or call 911 (if needed). Definitive disposition and diagnosis as appropriate pending reevaluation and review of above. middlechest Pain Score (Numeric/FACES): 8 - Related Data Allergies Allergy/AdvReac Type Severity Reaction Status Date / Time shrimp Allergy Swelling Verified 03/18/20 11:03 Home Meds: Home Meds Omeprazole 20 mg PO DAILY 7 Days #7 capsule. 12/21/19 [Rx] metFORMIN [Glucophage] 500 mg PO DAILY 30 Days #30 tab 12/21/19 [Rx] Ketorolac [Toradol] 10 mg PO TID 4 Days #12 tab 12/24/19 [Rx] diazePAM [Valium] 5 mg PO BEDTIME PRN 5 Days #5 tablet 12/24/19 [Rx] Past Medical History HEENT History: Reports: Other (See Below) Other HEENT History: frequent lock jaw Cardiovascular History: Reports: Hypertension Musculoskeletal History: Reports: None - Infectious Disease History Infectious Disease History: Reports: None - Past Surgical History HEENT Surgical History: Reports: Other (See Below) Other HEENT Surgeries/Procedures: R jaw Musculoskeletal Surgical History: Reports: Other (See Below) Other Musculoskeletal Surgeries/Procedures:: work related injury to L arm that led to nerve damage Social & Family History - Family History Family Medical History: No Pertinent Family History - Tobacco Use Tobacco Use Status *Q: Former Tobacco User Used Tobacco, but Quit: Yes Month/Year Tobacco Last Used: 2018 - Caffeine Use Caffeine Use: Reports: None - Recreational Drug Use Recreational Drug Use: No ED ROS GENERAL - Review of Systems Review Of Systems: Comprehensive ROS is negative, except as noted in HPI. ED EXAM, GENERAL - Physical Exam Exam: See Below (See dictation) Course - Vital Signs Last Recorded V/S: Last Vital Signs Temp 97 F 03/18/20 11:00 Pulse 86 03/18/20 11:52 Resp 20 03/18/20 11:52 BP 118/75 03/18/20 11:52 Pulse Ox 98 03/18/20 11:52 - Orders/Labs/Meds Orders: Active Orders 24 hr Category Date Time Status Cardiac Monitoring [RC] . DIRECTED Care 03/18/20 11:03 Active EKG Documentation Completion [RC] STAT Care 03/18/20 11:03 Active Sodium Chloride 0.9% [Saline Flush] Med 03/18/20 11:03 Active 10 ml FLUSH ASDIRECTED PRN Sodium Chloride 0.9% [Saline Flush] Med 03/18/20 11:03 Active 2.5 ml FLUSH ASDIRECTED PRN Saline Lock Insert [OM.PC] Stat Oth 03/18/20 11:03 Ordered Medication Orders Sodium Chloride (Saline Flush) 10 ml FLUSH ASDIRECTED PRN PRN Reason: Keep Vein Open Last Admin: 03/18/20 11:08 Dose: 10 ml Documented by: PASHA Sodium Chloride (Saline Flush) 2.5 ml FLUSH ASDIRECTED PRN PRN Reason: Keep Vein Open Last Admin: 03/18/20 11:08 Dose: 2.5 ml Documented by: PASHA Labs: Laboratory Tests 03/18/20 03/18/20 Range/Units 11:02 11:05 WBC 7.70 (4.0-11.0) K/uL RBC 4.82 (4.50-5.90) M/uL Hgb 15.6 (13.0-17.0) g/dL Hct 45.9 (38.0-50.0) % MCV 95.2 (80.0-98.0) fL MCH 32.4 H (27.0-32.0) pg MCHC 34.0 (31.0-37.0) g/dL RDW Std Deviation 45.7 (28.0-62.0) fl RDW Coeff of Elena 13 (11.0-15.0) % Plt Count 287 (150-400) K/uL MPV 9.10 (7.40-12.00) fL Neut % (Auto) 43.7 L (48.0-80.0) % Lymph % (Auto) 45.6 H (16.0-40.0) % Webster % (Auto) 7.8 (0.0-15.0) % Eos % (Auto) 2.6 (0.0-7.0) % Baso % (Auto) 0.3 (0.0-1.5) % Neut # (Auto) 3.4 (1.4-5.7) K/uL Lymph # (Auto) 3.5 H (0.6-2.4) K/uL Webster # (Auto) 0.6 (0.0-0.8) K/uL Eos # (Auto) 0.2 (0.0-0.7) K/uL Baso # (Auto) 0.0 (0.0-0.1) K/uL Nucleated RBC % 0.0 /100WBC Nucleated RBCs # 0 K/uL Sodium 143 (136-148) mmol/L Potassium 4.4 (3.5-5.1) mmol/L Chloride 106 (98-107) mmol/L Carbon Dioxide 27.2 (21.0-32.0) mmol/L BUN 19 H (7.0-18.0) mg/dL Creatinine 1.3 (0.8-1.3) mg/dL Est Cr Clr Drug Dosing 62.85 mL/min Estimated GFR (MDRD) 58.2 ml/min Glucose 120 H (74-106) mg/dL Calcium 9.8 (8.5-10.1) mg/dL Total Bilirubin 0.4 (0.2-1.0) mg/dL AST 66 H (15-37) IU/L ALT 196 H (14-63) IU/L Alkaline Phosphatase 119 H (46-116) U/L Troponin I < 0.050 (0.000-0.056) ng/mL Total Protein 8.3 H (6.4-8.2) g/dL Albumin 4.0 (3.4-5.0) g/dL Globulin 4.3 H (2.6-4.0) g/dL Albumin/Globulin Ratio 0.9 (0.9-1.6) Meds: Medications Generic Name Dose Route Start Last Admin Trade Name Freq PRN Reason Stop Dose Admin Sodium Chloride 10 ml 03/18/20 11:03 03/18/20 11:08 Saline Flush FLUSH 10 ml ASDIRECTED PRN Administration Keep Vein Open Sodium Chloride 2.5 ml 03/18/20 11:03 03/18/20 11:08 Saline Flush FLUSH 2.5 ml ASDIRECTED PRN Administration Keep Vein Open Discontinued Medications Generic Name Dose Route Start Last Admin Trade Name Freq PRN Reason Stop Dose Admin Aspirin 324 mg 03/18/20 11:03 03/18/20 11:08 Aspirin PO 03/18/20 11:04 324 mg ONETIME ONE Administration Lidocaine 700 mg 03/18/20 12:10 03/18/20 13:02 Lidoderm 5% TOP 03/18/20 12:11 700 mg ONETIME ONE Administration Morphine Sulfate 4 mg 03/18/20 11:29 03/18/20 11:49 Morphine IVPUSH 03/18/20 11:30 4 mg ONETIME ONE Administration Departure - Departure Time of Disposition: 12:32 Disposition: Home, Self-Care 01 Clinical Impression: Nonspecific chest pain Instructions: Nonspecific Chest Pain, Adult, [id number] Referrals: Liya Enrique MD [Physician] - Forms: ED Department Discharge Additional Instructions: The following information is given to patients seen in the emergency department who are being discharged to home. This information is to outline your options for follow-up care. We provide all patients seen in our emergency department with a follow-up referral. The need for follow-up, as well as the timing and circumstances, are variable de pending upon the specifics of your emergency department visit. If you don't have a primary care physician on staff, we will provide you with a referral. We always advise you to contact your personal physician following an emergency department visit to inform them of the circumstance of the visit and for follow-up with them and/or the need for any referrals to a consulting specialist. The emergency department will also refer you to a specialist when appropriate. This referral assures that you have the opportunity for follow-up care with a specialist. All of these measure are taken in an effort to provide you with optimal care, which includes your follow-up. Under all circumstances we always encourage you to contact your private physician who remains a resource for coordinating your care. When calling for follow-up care, please make the office aware that this follow-up is from your recent emergency room visit. If for any reason you are refused follow-up, please contact the [facility] Emergency Department at and asked to speak to the emergency department charge nurse. [facility] [address] [place] [address] [address] Thank you for choosing the [facility] emergency department in [place] for your medical needs today. It was a pleasure caring for you. Today you were seen in the emergency department for chest wall and shoulder pain. 1. Today your lab work, EKG, and chest x-ray was normal. 2. You have many medications that have been prescribed for you that you haven't filled or tried yet. You have a follow up appointment with Dr Enrique (presidential helicopter crew chief) on the April, at 0900. Please arrive at least 15 minutes early for registration purposes. You can arrange to see Dr Kumar (pain specialist) once your chest pain has been resolved/followed up with Dr Enrique. 3. We encourage you to follow up with recommended specialist in the next few days for re-evaluation and further care/management. If your symptoms should worsen, new symptoms develop or any of the signs and symptoms we discussed should arise please return to the emergency room or call 911 (if needed). Sepsis Event Note (ED) - Evaluation Sepsis Screening Result: No Definite Risk - Focused Exam Vital Signs: Vital Signs Temp Pulse Resp BP Pulse Ox 03/18/20 11:52 86 20 118/75 98 03/18/20 11:00 97 F 88 20 140/105 H 98 - My Orders Last 24 Hours: My Active Orders 03/18/20 11:03 Cardiac Monitoring [RC] . DIRECTED EKG Documentation Completion [RC] STAT Sodium Chloride 0.9% [Saline Flush] 10 ml FLUSH ASDIRECTED PRN Sodium Chloride 0.9% [Saline Flush] 2.5 ml FLUSH ASDIRECTED PRN Saline Lock Insert [OM.PC] Stat - Assessment/Plan Last 24 Hours: My Active Orders 03/18/20 11:03 Cardiac Monitoring [RC] . DIRECTED EKG Documentation Completion [RC] STAT Sodium Chloride 0.9% [Saline Flush] 10 ml FLUSH ASDIRECTED PRN Sodium Chloride 0.9% [Saline Flush] 2.5 ml FLUSH ASDIRECTED PRN Saline Lock Insert [OM.PC] Stat
[2020-03-18 11:37] LABS: BLOOD UREA NITROGEN,BUN 19 mg/dL (7.0-18.0); CARBON DIOXIDE,CO2 27.2 mmol/L (21.0-32.0); CHLORIDE,CL 106 mmol/L (98-107); GLUCOSE RANDOM 120 mg/dL (74-106); POTASSIUM,K 4.4 mmol/L (3.5-5.1); SODIUM,NA 143 mmol/L (136-148)
--- NOTE | 2020-03-18 11:45 | CR ---
INDICATION: Chest pain COMPARISON: 12/24/2019 TECHNIQUE: Single-view portable chest radiograph FINDINGS: TUBES AND LINES: None. HEART AND MEDIASTINUM: The heart size is normal. The mediastinal contour appears normal for patient age. LUNGS AND PLEURAL SPACES: The lungs appear normal.The pleural spaces are unremarkable. OSSEOUS STRUCTURES: Age-appropriate appearance. No acute focal finding. IMPRESSION: Normal single-view portable chest radiograph. Dictated by Tono Crow MD @ Mar 18 2020 11:41AM Signed by Dr. Tono Crow @ Mar 18 2020 11:42AM
[2020-03-18] MEDS ORDERED: Lidocaine 5% 700 MG Patch TOP ONE (12:10)
== END 2020-03-18 13:30 | disposition home or self-care (01) ==
LOC: MW.ED 10:55
DX: R07.9 Chest pain, unspecified (principal); I10 Essential (primary) hypertension; Z87.891 Personal history of nicotine dependence; Z91.013 Allergy to seafood; Z79.899 Other long term (current) drug therapy
CPT/HCPCS: 36415; 71045; 80053; 84484; 85025; 93005; 96374; 99285; A9270; J2270; 93010; 99284

== ENCOUNTER 2020-04-30 13:53 | Emergency (ER) | payer MEDICAID ==
--- NOTE | 2020-04-30 14:00 | EDM.PDOC ---
ED HPI GENERAL MEDICAL PROBLEM - General Chief Complaint: Lower Extremity Injury/Pain Stated Complaint: LEFT FT PAIN Time Seen by Provider: 04/30/20 13:55 Source of Information: Reports: Patient History Limitations: Reports: No Limitations - History of Present Illness INITIAL COMMENTS - FREE TEXT/NARRATIVE: HISTORY AND PHYSICAL: History of present illness: Patient is a 49-year-old male who presents to the emergency room with concerns of excessively dry skin, cracks and cuts to the bottom of his feet. He states over the past month he has noticed his skin has been very dry and due to the excessive dry skin he has some cracks in his heels and on his great toe. He has been using Epson salt, lotion and peroxide to help prevent any type of infection from forming. He states he does have diabetic neuropathy which he takes gabapentin for but feels his feet are very sensitive to touch. He denies any injury, trauma or falls. Patient denies any fever, chills, headache, change in vision, syncope or near syncope. Denies any chest pain, back pain, shortness of breath or cough. Denies any abdominal pain, nausea, vomiting, diarrhea, constipation or dysuria. Has not noted any blood in urine or stool. Patient has been eating and drinking appropriately. Review of systems: As per history of present illness and below otherwise all systems reviewed and negative. Past medical history: As per history of present illness and as reviewed below otherwise noncontributory. Surgical history: As per history of present illness and as reviewed below otherwise noncontributory. Social history: See social history for further information Family history: As per history of present illness and as reviewed below otherwise noncontributory. Physical exam: General: Well developed and well nourished 49 year old male. Alert and orientated x 3. Nontoxic in appearance and in no acute distress. Vital signs are stable and have been reviewed by me. Nursing notes were reviewed. HEENT: Atraumatic, normocephalic, pupils equal and reactive bilaterally, negative for conjunctival pallor or scleral icterus, mucous membranes moist, trachea midline. No drooling or trismus noted. No meningeal signs. No hot potato voice noted. Lungs: Clear to auscultation bilaterally. No wheezes, rales, or rhonchi. Normal work of breathing, no accessory muscles used. Heart: S1S2, regular rate and rhythm without overt murmur, gallops, or rubs. No JVD. No peripheral edema Abdomen: Soft, nondistended, nontender. Normoactive bowel sounds. Negative for masses or costovertebral tenderness. Skin: Excessively dry and cracked skin to bilateral feet left > right. The left great toe has a 2cm crack due to dry skin, dried blood noted. No erythema, fluctuance or diabetic foot ulcers noted. Remaining skin is intact, warm, dry. No lesions or rashes noted. Hematologic: No petechiae or purpra. Mucosa appropriate color and normal nail bed color and refill. Extremities: Recently had carpal tunnel repair of left upper extremity (acewrapped and sling from previous). He otherwise moves all extremities per self without difficulty or deficits, negative for cords or calf pain. Strong pedal pulses bilaterally. SEE SKIN. Neurovascular unremarkable. Neuro: Awake, alert, oriented. Cranial nerves II through XII unremarkable. Cerebellum unremarkable. Motor and sensory unremarkable throughout. Exam nonfocal. Psychiatric: Mood and affect are appropriate. Normal thought process. Answering questions appropriately. Notes: *This patient was seen and evaluated during the 2019 SARS-CoV-2 novel coronavirus pandemic period. Community viral transmission is ongoing at time of this encounter and the emergency department is operating under pandemic response procedures. Patient does take gabapentin for his diabetic neuropathy. There is a small break in the skin on the left great toe about 2 cm due to excessively dry skin. Lab work is unremarkable. At this time I do not have any concern for an osteomyelitis, x-ray is not warranted. I have talked with the patient about today's findings, in addition to providing specific details for plan of care. Reassessment at the time of disposition demonstrates that the patient is in no acute distress. We discussed the importance of following up with podiatry and/or diabetic foot care. The patient is stable for discharge, counseling was provided and we discussed in great detail signs and symptoms that would prompt them to return to the Emergency Department. Medication, follow up and supportive care measures were reviewed and discussed. Voices understanding and is agreeable to plan of care. Denies any further questions or concerns at this time. Diagnostics: CBC, CMP, Lactate, Therapeutics: Keflex Prescription: Keflex Impression: At risk for diabetic foot ulcer Plan: 1. Today's lab work is within normal limits. Your skin is excessively dry and cracking, which is serious for persons that are diabetic. I would like you to follow up with Podiatry, Dr Moran at [facility] - for diabetic foot care. I am going to place you on antibitoics at this time due to the cracked skin on your great toe. If your symptoms should worsen, new symptoms develop or any of the signs and symptoms we discussed should arise please return to the emergency room or call 911 (if needed). 2. You can alternate Tylenol and ibuprofen as needed for pain and fever management. 3. We encourage you to follow up with your primary care provider and/or recommended specialist in the next few days for re-evaluation and further care/management. Definitive disposition and diagnosis as appropriate pending reevaluation and review of above. left foot Pain Score (Numeric/FACES): 8 - Related Data Allergies Allergy/AdvReac Type Severity Reaction Status Date / Time shrimp Allergy Swelling Verified 04/30/20 14:15 Home Meds: Home Meds Omeprazole 20 mg PO DAILY 7 Days #7 capsule. 12/21/19 [Rx] metFORMIN [Glucophage] 500 mg PO DAILY 30 Days #30 tab 12/21/19 [Rx] Ketorolac [Toradol] 10 mg PO TID 4 Days #12 tab 12/24/19 [Rx] diazePAM [Valium] 5 mg PO BEDTIME PRN 5 Days #5 tablet 12/24/19 [Rx] cephALEXin [Keflex] 500 mg PO Q8H 7 Days #21 cap 04/30/20 [Rx] Past Medical History HEENT History: Reports: Other (See Below) Other HEENT History: frequent lock jaw Cardiovascular History: Reports: Hypertension Musculoskeletal History: Reports: None - Infectious Disease History Infectious Disease History: Reports: None - Past Surgical History HEENT Surgical History: Reports: Other (See Below) Other HEENT Surgeries/Procedures: R jaw Musculoskeletal Surgical History: Reports: Other (See Below) Other Musculoskeletal Surgeries/Procedures:: work related injury to L arm that led to nerve damage Social & Family History - Family History Family Medical History: No Pertinent Family History - Caffeine Use Caffeine Use: Reports: None Review of Systems - Review of Systems Review Of Systems: Comprehensive ROS is negative, except as noted in HPI. ED EXAM, GENERAL - Physical Exam Exam: See Below (See dictation) Course - Vital Signs Last Recorded V/S: Last Vital Signs Temp 97.2 F 04/30/20 15:21 Pulse 86 04/30/20 15:21 Resp 16 04/30/20 15:21 BP 115/79 04/30/20 15:21 Pulse Ox 97 04/30/20 15:21 - Orders/Labs/Meds Orders: Active Orders 24 hr Category Date Time Status Saline Lock Insert [OM.PC] Stat Oth 04/30/20 14:04 Ordered Labs: Laboratory Tests 04/30/20 04/30/20 04/30/20 Range/Units 14:20 14:20 14:20 WBC 6.04 (4.0-11.0) K/uL RBC 4.43 L (4.50-5.90) M/uL Hgb 13.9 (13.0-17.0) g/dL Hct 41.9 (38.0-50.0) % MCV 94.6 (80.0-98.0) fL MCH 31.4 (27.0-32.0) pg MCHC 33.2 (31.0-37.0) g/dL RDW Std Deviation 43.5 (28.0-62.0) fl RDW Coeff of Elena 13 (11.0-15.0) % Plt Count 270 (150-400) K/uL MPV 8.60 (7.40-12.00) fL Neut % (Auto) 53.6 (48.0-80.0) % Lymph % (Auto) 37.6 (16.0-40.0) % [place] % (Auto) 6.0 (0.0-15.0) % Eos % (Auto) 2.5 (0.0-7.0) % Baso % (Auto) 0.3 (0.0-1.5) % Neut # (Auto) 3.2 (1.4-5.7) K/uL Lymph # (Auto) 2.3 (0.6-2.4) K/uL [place]inn # (Auto) 0.4 (0.0-0.8) K/uL Eos # (Auto) 0.2 (0.0-0.7) K/uL Baso # (Auto) 0.0 (0.0-0.1) K/uL Nucleated RBC % 0.0 /100WBC Nucleated RBCs # 0 K/uL Lactate 1.1 (0.20-2.00) mmol/L Sodium 142 (136-148) mmol/L Potassium 4.4 (3.5-5.1) mmol/L Chloride 103 (98-107) mmol/L Carbon Dioxide 29.4 (21.0-32.0) mmol/L BUN 19 H (7.0-18.0) mg/dL Creatinine 1.3 (0.8-1.3) mg/dL Est Cr Clr Drug Dosing 62.85 mL/min Estimated GFR (MDRD) 58.2 ml/min Glucose 114 H (74-106) mg/dL Calcium 9.1 (8.5-10.1) mg/dL Total Bilirubin 0.7 (0.2-1.0) mg/dL AST 37 (15-37) IU/L ALT 66 H (14-63) IU/L Alkaline Phosphatase 93 (46-116) U/L Total Protein 7.8 (6.4-8.2) g/dL Albumin 3.8 (3.4-5.0) g/dL Globulin 4.0 (2.6-4.0) g/dL Albumin/Globulin Ratio 0.9 (0.9-1.6) Meds: Medications Discontinued Medications Generic Name Dose Route Start Last Admin Trade Name Freq PRN Reason Stop Dose Admin Sodium Chloride 10 ml 04/30/20 14:04 04/30/20 14:24 Saline Flush FLUSH 10 ml ASDIRECTED PRN Administration Keep Vein Open Sodium Chloride 2.5 ml 04/30/20 14:04 04/30/20 14:24 Saline Flush FLUSH 2.5 ml ASDIRECTED PRN Administration Keep Vein Open Departure - Departure Time of Disposition: 14:58 Disposition: Home, Self-Care 01 Clinical Impression: At risk for diabetic foot ulcer - Discharge Information Prescriptions: cephALEXin [Keflex] 500 mg PO Q8H 7 Days #21 cap Instructions: Peripheral Neuropathy Referrals: Tobin Rain MD [Primary Care Provider] - Forms: ED Department Discharge Additional Instructions: The following information is given to patients seen in the emergency department who are being discharged to home. This information is to outline your options for follow-up care. We provide all patients seen in our emergency department with a follow-up referral. The need for follow-up, as well as the timing and circumstances, are variable depending upon the specifics of your emergency department visit. If you don't have a primary care physician on staff, we will provide you with a referral. We always advise you to contact your personal physician following an emergency department visit to inform them of the circumstance of the visit and for follow-up with them and/or the need for any referrals to a consulting specialist. The emergency department will also refer you to a specialist when appropriate. This referral assures that you have the opportunity for follow-up care with a specialist. All of these measure are taken in an effort to provide you with optimal care, which includes your follow-up. Under all circumstances we always encourage you to contact your private physician who remains a resource for coordinating your care. When calling for follow-up care, please make the office aware that this follow-up is from your recent emergency room visit. If for any reason you are refused follow-up, please contact the [facility] Emergency Department at and asked to speak to the emergency department charge nurse. [facility] [address] [place] [address] [place] [address] Thank you for choosing the [facility] emergency department in [place] for your medical needs today. It was a pleasure caring for you. Today you were seen in the emergency department for excessively dry skin of feet. 1. Today's lab work is within normal limits. Your skin is excessively dry and cracking, which is serious for persons that are diabetic. I would like you to follow up with Podiatry, Dr Moran at [facility] - for diabetic foot care. I am going to place you on antibitoics at this t rodney due to the cracked skin on your great toe. If your symptoms should worsen, new symptoms develop or any of the signs and symptoms we discussed should arise please return to the emergency room or call 911 (if needed). 2. You can alternate Tylenol and ibuprofen as needed for pain and fever management. 3. We encourage you to follow up with your primary care provider and/or recommended specialist in the next few days for re-evaluation and further care/management. Sepsis Event Note (ED) - Focused Exam Vital Signs: Vital Signs Temp Pulse Resp BP Pulse Ox 04/30/20 15:21 97.2 F 86 16 115/79 97 04/30/20 13:58 95.5 F L 103 H 16 114/78 97 - My Orders Last 24 Hours: My Active Orders 04/30/20 14:04 Saline Lock Insert [OM.PC] Stat - Assessment/Plan Last 24 Hours: My Active Orders 04/30/20 14:04 Saline Lock Insert [OM.PC] Stat
[2020-04-30] MEDS ORDERED: Sodium Chloride 0.9% 2.5 ML Syringe FLUSH PRN (14:04)
[2020-04-30] MEDS ORDERED: Sodium Chloride 0.9% 10 ML Syringe FLUSH PRN (14:04)
[2020-04-30 15:05] LABS: CARBON DIOXIDE,CO2 29.4 mmol/L (21.0-32.0); POTASSIUM,K 4.4 mmol/L (3.5-5.1)
== END 2020-04-30 15:23 | disposition home or self-care (01) ==
LOC: MW.ED 13:53
DX: L98.8 Other specified disorders of the skin and subcutaneous tissue (principal); L85.3 Xerosis cutis; E11.40 Type 2 diabetes mellitus with diabetic neuropathy, unspecified; I10 Essential (primary) hypertension; Z91.013 Allergy to seafood; Z79.84 Long term (current) use of oral hypoglycemic drugs; Z79.899 Other long term (current) drug therapy
CPT/HCPCS: 36415; 80053; 83605; 85025; 99283

== ENCOUNTER 2020-07-16 09:41 | Emergency (ER) | payer MEDICAID ==
[2020-07-16 10:33] LABS: BLOOD UREA NITROGEN,BUN 19 mg/dL (7.0-18.0); CARBON DIOXIDE,CO2 22.9 mmol/L (21.0-32.0); CHLORIDE,CL 107 mmol/L (98-107); GLUCOSE RANDOM 203 mg/dL (74-106); LIPASE 157 U/L (73-393); POTASSIUM,K 3.9 mmol/L (3.5-5.1); SODIUM,NA 140 mmol/L (136-148)
--- NOTE | 2020-07-16 10:37 | EDM.PDOC ---
ED HPI GENERAL MEDICAL PROBLEM - General Chief Complaint: Neuro Symptoms/Deficits Stated Complaint: ems Time Seen by Provider: 07/16/20 10:30 Source of Information: Reports: Patient History Limitations: Reports: No Limitations - History of Present Illness INITIAL COMMENTS - FREE TEXT/NARRATIVE: Patient is a 50-year-old male who was brought in as a possible stroke alert. Patient states for the past few months he has been having diffuse body numbness and weakness. Patient this morning woke up he could not move his upper or lower extremities and states that this made him very scared and called 911. Patient here denies any falls or injury to his head. Patient denies any change in vision change in speech or facial droop of mental status. - Related Data Allergies Allergy/AdvReac Type Severity Reaction Status Date / Time shrimp Allergy Swelling Verified 04/30/20 14:15 Home Meds: Home Meds Omeprazole 20 mg PO DAILY 7 Days #7 capsule. 12/21/19 [Rx] metFORMIN [Glucophage] 500 mg PO DAILY 30 Days #30 tab 12/21/19 [Rx] Ketorolac [Toradol] 10 mg PO TID 4 Days #12 tab 12/24/19 [Rx] diazePAM [Valium] 5 mg PO BEDTIME PRN 5 Days #5 tablet 12/24/19 [Rx] cephALEXin [Keflex] 500 mg PO Q8H 7 Days #21 cap 04/30/20 [Rx] Past Medical History HEENT History: Reports: Other (See Below) Other HEENT History: frequent lock jaw Cardiovascular History: Reports: Hypertension Musculoskeletal History: Reports: None Neurological History: Reports: Other (See Below) Other Neuro History: ulnar neuropathy Endocrine/Metabolic History: Reports: Diabetes, Type II - Infectious Disease History Infectious Disease History: Reports: None - Past Surgical History HEENT Surgical History: Reports: Other (See Below) Other HEENT Surgeries/Procedures: R jaw Musculoskeletal Surgical History: Reports: Other (See Below) Other Musculoskeletal Surgeries/Procedures:: work related injury to L arm that led to nerve damage Social & Family History - Family History Family Medical History: No Pertinent Family History - Tobacco Use Tobacco Use Status *Q: Never Tobacco User Second Hand Smoke Exposure: No - Caffeine Use Caffeine Use: Reports: None - Recreational Drug Use Recreational Drug Use: No ED ROS GENERAL - Review of Systems Review Of Systems: See Below Constitutional: Reports: No Symptoms HEENT: Reports: No Symptoms Respiratory: Reports: No Symptoms Cardiovascular: Reports: No Symptoms Endocrine: Reports: No Symptoms GI/Abdominal: Reports: No Symptoms : Reports: No Symptoms Musculoskeletal: Reports: No Symptoms Skin: Reports: No Symptoms Neurological: Reports: Difficulty Walking Psychiatric: Reports: No Symptoms Hematologic/Lymphatic: Reports: No Symptoms Immunologic: Reports: No Symptoms ED EXAM, NEURO - Physical Exam Exam: See Below Exam Limited By: No Limitations General Appearance: Alert, Mild Distress Eye Exam: Bilateral Eye: EOMI, PERRL Head Exam: Atraumatic Respiratory/Chest: No Respiratory Distress, Lungs Clear, Normal Breath Sounds Cardiovascular: Normal Peripheral Pulses, Regular Rate, Rhythm, No Edema GI/Abdominal: Normal Bowel Sounds, Soft, Non-Tender Neurological: Alert, CN II-XII Intact, Normal Reflexes, Other (Pt strenght is 1/5 all extremities ). No: Normal Gait Extremities: Normal Inspection #1 Interpretation EKG Date: 07/16/20 Time: 09:57 Rhythm: NSR Rate (Beats/Min): 81 ST-T: Normal Course - Vital Signs Last Recorded V/S: Last Vital Signs Temp 97.9 F 07/16/20 09:42 Pulse 81 07/16/20 10:23 Resp 18 07/16/20 10:23 BP 128/84 07/16/20 10:23 Pulse Ox 97 07/16/20 10:23 - Orders/Labs/Meds Labs: Laboratory Tests 07/16/20 07/16/20 07/16/20 Range/Units 09:38 09:38 10:13 WBC 6.40 (4.0-11.0) K/uL RBC 4.37 L (4.50-5.90) M/uL Hgb 14.0 (13.0-17.0) g/dL Hct 42.1 (38.0-50.0) % MCV 96.3 (80.0-98.0) fL MCH 32.0 (27.0-32.0) pg MCHC 33.3 (31.0-37.0) g/dL RDW Std Deviation 48.9 (28.0-62.0) fl RDW Coeff of Elena 14 (11.0-15.0) % Plt Count 295 (150-400) K/uL MPV 9.20 (7.40-12.00) fL Neut % (Auto) 65.4 (48.0-80.0) % Lymph % (Auto) 27.2 (16.0-40.0) % [place] % (Auto) 6.1 (0.0-15.0) % Eos % (Auto) 1.1 (0.0-7.0) % Baso % (Auto) 0.2 (0.0-1.5) % Neut # (Auto) 4.2 (1.4-5.7) K/uL Lymph # (Auto) 1.7 (0.6-2.4) K/uL [place] # (Auto) 0.4 (0.0-0.8) K/uL Eos # (Auto) 0.1 (0.0-0.7) K/uL Baso # (Auto) 0.0 (0.0-0.1) K/uL Nucleated RBC % 0.0 /100WBC Nucleated RBCs # 0 K/uL Sodium 140 (136-148) mmol/L Potassium 3.9 (3.5-5.1) mmol/L Chloride 107 (98-107) mmol/L Carbon Dioxide 22.9 (21.0-32.0) mmol/L BUN 19 H (7.0-18.0) mg/dL Creatinine 1.3 (0.8-1.3) mg/dL Est Cr Clr Drug Dosing 70.79 mL/min Estimated GFR (MDRD) 58.0 ml/min Glucose 203 H (74-106) mg/dL POC Glucose 134 H (70-99) mg/dL Calcium 8.6 (8.5-10.1) mg/dL Magnesium 2.0 (1.8-2.4) mg/dL Total Bilirubin 0.5 (0.2-1.0) mg/dL AST 23 (15-37) IU/L ALT 59 (14-63) IU/L Alkaline Phosphatase 76 (46-116) U/L Creatine Kinase 147 (26-308) U/L Troponin I < 0.050 (0.000-0.056) ng/mL Total Protein 7.6 (6.4-8.2) g/dL Albumin 3.5 (3.4-5.0) g/dL Globulin 4.1 H (2.6-4.0) g/dL Albumin/Globulin Ratio 0.9 (0.9-1.6) Lipase 157 (73-393) U/L Urine Opiates Screen (NEGATIVE) Ur Oxycodone Screen (NEGATIVE) Urine Methadone Screen (NEGATIVE) Ur Barbiturates Screen (NEGATIVE) Ur Phencyclidine Scrn (NEGATIVE) Ur Amphetamine Screen (NEGATIVE) U Methamphetamines Scrn (NEGATIVE) U Benzodiazepines Scrn (NEGATIVE) U Cocaine Metab Screen (NEGATIVE) U Marijuana (THC) Screen (NEGATIVE) 07/16/20 Range/Units 11:28 WBC (4.0-11.0) K/uL RBC (4.50-5.90) M/uL Hgb (13.0-17.0) g/dL Hct (38.0-50.0) % MCV (80.0-98.0) fL MCH (27.0-32.0) pg MCHC (31.0-37.0) g/dL RDW Std Deviation (28.0-62.0) fl RDW Coeff of Elena (11.0-15.0) % Plt Count (150-400) K/uL MPV (7.40-12.00) fL Neut % (Auto) (48.0-80.0) % Lymph % (Auto) (16.0-40.0) % [place] % (Auto) (0.0-15.0) % Eos % (Auto) (0.0-7.0) % Baso % (Auto) (0.0-1.5) % Neut # (Auto) (1.4-5.7) K/uL Lymph # (Auto) (0.6-2.4) K/uL [place] # (Auto) (0.0-0.8) K/uL Eos # (Auto) (0.0-0.7) K/uL Baso # (Auto) (0.0-0.1) K/uL Nucleated RBC % /100WBC Nucleated RBCs # K/uL Sodium (136-148) mmol/L Potassium (3.5-5.1) mmol/L Chloride (98-107) mmol/L Carbon Dioxide (21.0-32.0) mmol/L BUN (7.0-18.0) mg/dL Creatinine (0.8-1.3) mg/dL Est Cr Clr Drug Dosing mL/min Estimated GFR (MDRD) ml/min Glucose (74-106) mg/dL POC Glucose (70-99) mg/dL Calcium (8.5-10.1) mg/dL Magnesium (1.8-2.4) mg/dL Total Bilirubin (0.2-1.0) mg/dL AST (15-37) IU/L ALT (14-63) IU/L Alkaline Phosphatase (46-116) U/L Creatine Kinase (26-308) U/L Troponin I (0.000-0.056) ng/mL Total Protein (6.4-8.2) g/dL Albumin (3.4-5.0) g/dL Globulin (2.6-4.0) g/dL Albumin/Globulin Ratio (0.9-1.6) Lipase (73-393) U/L Urine Opiates Screen NEGATIVE (NEGATIVE) Ur Oxycodone Screen NEGATIVE (NEGATIVE) Urine Methadone Screen NEGATIVE (NEGATIVE) Ur Barbiturates Screen NEGATIVE (NEGATIVE) Ur Phencyclidine Scrn NEGATIVE (NEGATIVE) Ur Amphetamine Screen NEGATIVE (NEGATIVE) U Methamphetamines Scrn NEGATIVE (NEGATIVE) U Benzodiazepines Scrn NEGATIVE (NEGATIVE) U Cocaine Metab Screen NEGATIVE (NEGATIVE) U Marijuana (THC) Screen NEGATIVE (NEGATIVE) - Re-Assessments/Exams Free Text/Narrative Re-Assessment/Exam: 07/16/20 12:12 Patient presented today for various neurological symptoms. At speaking to patient's PMD reviewing charts patient at this time for the past. Patient also himself reports having symptoms for the past 2 months. Patient now able to ambulate and move all extremities. Patient will be discharged home and will follow up with neurology as outpatient. Departure - Departure Time of Disposition: 12:13 Disposition: Home, Self-Care 01 Condition: Good Clinical Impression: Neurologic abnormality - Discharge Information *PRESCRIPTION DRUG MONITORING PROGRAM REVIEWED*: Not Applicable *COPY OF PRESCRIPTION DRUG MONITORING REPORT IN PATIENT LETTY: Not Applicable Forms: ED Department Discharge Additional Instructions: The following information is given to patients seen in the emergency department who are being discharged to home. This information is to outline your options for follow-up care. We provide all patients seen in our emergency department with a follow-up referral. The need for follow-up, as well as the timing and circumstances, are variable depending upon the specifics of your emergency department visit. If you don't have a primary care physician on staff, we will provide you with a referral. We always advise you to contact your personal physician following an emergency department visit to inform them of the circumstance of the visit and for follow-up with them and/or the need for any referrals to a consulting specialist. The emergency department will also refer you to a specialist when appropriate. This referral assures that you have the opportunity for follow-up care with a specialist. All of these measure are taken in an effort to provide you with optimal care, which includes your follow-up. Under all circumstances we always encourage you to contact your private physician who remains a resource for coordinating your care. When calling for follow-up care, please make the office aware that this follow-up is from your recent emergency room visit. If for any reason you are refused follow-up, please contact the [facility] Emergency Department at and asked to speak to the emergency department charge nurse. Please follow up with your primary care physician. If you do not have a primary care physician, see below: [facility] - Neurology Professional [address], [address] [place] [address] [facility] NEUROLOGY AND NEUROSURGERY [email or web address] [place] [address] You are seen today for multiple neurological complaints such not be would move your arms or legs. We did a CAT scan that was negative. Moving arms legs have returned. You have had the symptoms before in the past recommend daily seek further care we provided neurology here but also provided you the number to call for neurosurgery if you are having a spinal problem that she reported in the past you have any other concerning symptoms please return to the ED. Sepsis Event Note (ED) - Evaluation Sepsis Screening Result: No Definite Risk - Focused Exam Vital Signs: Vital Signs Temp Pulse Resp BP Pulse Ox 07/16/20 10:23 81 18 128/84 97 07/16/20 09:42 97.9 F 78 17 134/80 98 - Assessment/Plan Plan: Patient is a 50-year-old male presents today as a possible stroke alert. Full code was called outpatient at this time for the past 2 months. Patient symptoms not follow definite pattern he has weakness in all extremities and also decreased sensation as well. Patient has normal cranial nerves II through XII no vision changes. Will obtain CT head labs and reassess.
--- NOTE | 2020-07-16 10:38 | CT ---
EXAM DATE: 07/16/20 PATIENT'S AGE: 50 Patient: GENESIS FRIED Facility: [facility] Site . Site : [id number] Study: CT-Head STROKE PROTOCOL -07/16/2020 9:55:35 AM Ordering Physician: ED Provider Temporary Final Report: INDICATION: Weakness TECHNIQUE: CT head without contrast. COMPARISON: 12/20/2019 FINDINGS: CSF spaces: Within normal limits for age. Brain parenchyma and extra-axial spaces: The hanson-white differentiation is normal. No sign of mass, hemorrhage, or midline shift. No extra-axial fluid collection. Skull base and calvarium: The visualized paranasal sinuses and mastoid air cells demonstrate no acute or significant findings. The visualized orbits are grossly unremarkable. No skull fractures. IMPRESSION: Unremarkable noncontrast head CT. No sign of CVA or other abnormality to explain weakness. Please note that all CT scans at this facility use dose modulation, iterative reconstruction, and/or weight-based dosing when appropriate to reduce radiation dose to as low as reasonably achievable. Dictated by Neftali Downs MD @ Jul 16 2020 10:09AM Signed by: Neftali Downs MD @07/16/2020 10:12:22 AM (Electronic Signature) Report Signed by Proxy. [facility]
--- NOTE | 2020-07-16 10:43 | CR ---
INDICATION: Left-sided numbness TECHNIQUE: Chest 1 views COMPARISON: 03/18/2020 FINDINGS: Cardiovascular and mediastinum: Heart size and vasculature are normal in caliber and appearance. Lungs and pleural spaces: Lungs are clear. No sign of infiltrate or mass. No sign of pleural effusion. No pneumothorax. Bones and soft tissues: No significant findings. IMPRESSION: No acute findings and no significant changes from the prior exam. Dictated by Neftali Downs MD @ Jul 16 2020 10:42AM Signed by Dr. Neftali Downs @ Jul 16 2020 10:43AM
== END 2020-07-16 12:39 | disposition home or self-care (01) ==
LOC: MW.ED 09:41
DX: R29.818 Other symptoms and signs involving the nervous system (principal); I10 Essential (primary) hypertension; E11.42 Type 2 diabetes mellitus with diabetic polyneuropathy; Z79.84 Long term (current) use of oral hypoglycemic drugs; Z79.899 Other long term (current) drug therapy; Z91.013 Allergy to seafood
CPT/HCPCS: 36415; 70450; 70450-26; 71045; 71045-26; 80053; 80305-QW; 82550; 82947; 83690; 83735; 84484; 85025; 93005; 93010; 99284; 99285-25

== ENCOUNTER 2020-08-04 12:13 | Day surgery (SDC) | payer MEDICAID ==
[2020-08-04] MEDS ORDERED: Iopamidol 200-M 10 ML vial ITHECAL ONE (13:00)
[2020-08-04] MEDS ORDERED: Betamethasone Acetate/Betamethasone Sod Phosphate 30 MG/5 ML MDV EPIDUR ONE (13:00)
[2020-08-04] MEDS ORDERED: Lidocaine 2% 5 ML SDV INJECT ONE (13:00)
[2020-08-04] MEDS ORDERED: Ropivacaine 0.5% 5 MG/ML 30 ML SDV INJECT ONE (13:00)
--- NOTE | 2020-08-04 20:57 | OR ---
SURGEON: Kerry Devries D.O. DATE OF PROCEDURE: 08/04/2020 PRIMARY SURGEON: Kerry Devries D.O. AD TRAFFICKER: OR staff present: 1. Peterson Gates RN. 2. Braeden Hewitt RN. 3. Sasha Reed RT. WOUND CLASS: I. PREOPERATIVE DIAGNOSES: 1. L5-S1 herniated disk. 2. Chronic low back pain with bilateral lower extremities radiculopathy, L5- S1. POSTOPERATIVE DIAGNOSES: 1. L5-S1 herniated disk. 2. Chronic low back pain with bilateral lower extremities radiculopathy, L5- S1. PROCEDURES PERFORMED: 1. Right S1 transforaminal epidural steroid injection. 2. Fluoroscopic guidance for needle placement. 3. Local with oral Valium for sedation. SCREENING QUESTIONS: The patient answered "no" to all of the following questions: 1. Are you allergic to iodine, Betadine or latex? 2. Do you have a bleeding disorder? 3. Do you have any joint replacements, heart valve replacements, or a pacemaker? 4. Are you allergic to anti-inflammatories or blood thinners? 5. Do you have any current local or systemic infections? DESCRIPTION OF PROCEDURE: The patient had the procedure thoroughly explained including risks, benefits and alternatives. Consent was signed in my clinic indicating understanding and willingness to proceed. The patient presented to [facility] where the patient was escorted to the dressing room to disrobe and change into a hospital gown. Preoperative vital signs were taken and stable. The patient reported that Valium was taken prior to the procedure. The patient was brought to the procedure room and placed in the prone position on the table. A pillow was placed under the abdomen in order to flatten the lumbar lordosis. The back was prepped with ChloraPrep and sterilely draped. All personnel in the operating room were dressed in appropriate attire including surgical scrubs, head and shoe covers. This was to ensure sterility while in the treatment room. During the time fluoroscopy was in use, all personnel in the operating room wore lead melgar with thyroid collars. Sterile technique was used during the procedure. The fluoroscope was placed for the right S1 transforaminal epidural steroid injection. There was no sign of infection at the skin site for needle insertion. The skin was anesthetized with 2% lidocaine with a 27 gauge 1-1/2 inch needle. Then a 22 gauge 3-1/2 inch spinal needle, advanced to the right S1. Under direct fluoroscopic guidance needle position was verified in three views; AP, oblique and lateral, with 0.2 cubic centimeters increments of Isovue- 200 dye. No intravascular flow pattern was observed under live fluoroscopy. Then 12 milligrams of Celestone was slowly injected after negative aspiration of heme, cerebrospinal fluid and no paresthesias were noted. The needle was cleared prior to removal from the skin. No adverse reactions were noted. The patient was brought to the recovery room awake and in good condition by my staff. The patient was monitored and discharge instructions were given after a brief stay in the recovery area. Both oral and written discharge and follow up instructions were given. The patient will follow up in the clinic in 3-4 weeks post procedure to evaluate the efficacy. The patient verbalized understanding including understanding of those signs and symptoms that would require emergency care and knows how to contact the office if there are any problems or questions in the meantime. PREOPERATIVE PAIN: 9/10. POSTOPERATIVE PAIN: 0/10. PLAN: Follow up in the pain clinic in 3 weeks. HOGCOURT / ACACIA /[id number] RENE
== END 2020-08-04 13:53 ==
LOC: MW.SDS 12:13
PROVIDERS: ATTEND Anesthesiology
DX: G89.29 Other chronic pain (principal); M51.17 Intervertebral disc disorders with radiculopathy, lumbosacral region; M51.16 Intervertebral disc disorders with radiculopathy, lumbar region; M48.02 Spinal stenosis, cervical region; M50.11 Cervical disc disorder with radiculopathy, high cervical region; M25.78 Osteophyte, vertebrae; M47.22 Other spondylosis with radiculopathy, cervical region; M47.26 Other spondylosis with radiculopathy, lumbar region; M48.061 Spinal stenosis, lumbar region without neurogenic claudication; M79.18 Myalgia, other site; I10 Essential (primary) hypertension; E11.9 Type 2 diabetes mellitus without complications; Z91.013 Allergy to seafood

== ENCOUNTER 2020-09-17 21:11 | Emergency (ER) | payer MEDICAID, OTHER ==
--- NOTE | 2020-09-17 21:14 | EDM.PDOC ---
ED HPI GENERAL MEDICAL PROBLEM - General Chief Complaint: Neuro Symptoms/Deficits Stated Complaint: SEIZURES Time Seen by Provider: 09/17/20 21:12 Source of Information: Reports: Patient History Limitations: Reports: No Limitations - History of Present Illness INITIAL COMMENTS - FREE TEXT/NARRATIVE: 50-year-old male past medical history [id number] diabetes (not on DM meds), neuropathy on gabapentin and baclofen, C5-6 herniated disc with surgery planned in 1-month presents for acute exacerbation of chronic neurologic problem. Patient notes that the symptoms have been going on for the last few months. He notes that he was seen in July of this year in the emergency department for very similar symptoms. States that very often he gets an electric shock sensation from his neck radiating down his arm and into his head. He initially told me it was the right arm but is now saying left at the end of the conversation. He notes that when he was using the restroom today he felt the electric shock sensation and it almost knocked him out. He states that he may have lost consciousness but does note that he was standing and did not hit the floor. He is currently experiencing pain in his neck. Denies any injuries. Feels generalized weakness and states that for the last several months he has had on and off paralysis of legs and arms when he gets these electric shocking sensations. He has seen a neurologist at [facility] and is actually planning for surgery on his neck next month. lower back Pain Score (Numeric/FACES): 9 - Related Data Allergies Allergy/AdvReac Type Severity Reaction Status Date / Time shrimp Allergy Swelling Verified 09/17/20 21:19 Home Meds: Home Meds Omeprazole 20 mg PO DAILY 7 Days #7 capsule. 12/21/19 [Rx] metFORMIN [Glucophage] 500 mg PO DAILY 30 Days #30 tab 12/21/19 [Rx] Ketorolac [Toradol] 10 mg PO TID 4 Days #12 tab 12/24/19 [Rx] diazePAM [Valium] 5 mg PO BEDTIME PRN 5 Days #5 tablet 12/24/19 [Rx] cephALEXin [Keflex] 500 mg PO Q8H 7 Days #21 cap 04/30/20 [Rx] Past Medical History HEENT History: Reports: Other (See Below) Other HEENT History: frequent lock jaw Cardiovascular History: Reports: Hypertension Musculoskeletal History: Reports: None Neurological History: Reports: Other (See Below) Other Neuro History: ulnar neuropathy Endocrine/Metabolic History: Reports: Diabetes, Type II - Infectious Disease History Infectious Disease History: Reports: None - Past Surgical History HEENT Surgical History: Reports: Other (See Below) Other HEENT Surgeries/Procedures: R jaw Musculoskeletal Surgical History: Reports: Other (See Below) Other Musculoskeletal Surgeries/Procedures:: work related injury to L arm that led to nerve damage Social & Family History - Family History Family Medical History: No Pertinent Family History - Caffeine Use Caffeine Use: Reports: None ED ROS GENERAL - Review of Systems Review Of Systems: Comprehensive ROS is negative, except as noted in HPI. ED EXAM, GENERAL - Physical Exam Exam: See Below Exam Limited By: No Limitations General Appearance: Alert, WD/WN, No Apparent Distress Eye Exam: Bilateral Eye: EOMI, PERRL Ears: Hearing Grossly Normal Throat/Mouth: Normal Voice, No Airway Compromise Head: Atraumatic, Normocephalic Neck: Normal Inspection Respiratory/Chest: No Respiratory Distress, Lungs Clear, Normal Breath Sounds, No Accessory Muscle Use Cardiovascular: Normal Peripheral Pulses, Regular Rate, Rhythm GI/Abdominal: Soft, Non-Tender Extremities: Normal Inspection Neurological: Alert, Oriented, CN II-XII Intact, Normal Cognition, No Motor/Sensory Deficits Psychiatric: Normal Affect, Normal Mood Skin Exam: Warm, Dry, Intact, Normal Color #1 Interpretation EKG Date: 09/17/20 Time: 09:17 Rhythm: NSR Rate (Beats/Min): 82 [place]: Normal P-Wave: Present QRS: Normal ST-T: Normal QT: Normal [place]/PQ Interval: 153 EKG Interpretation Comments: normal EKG Course - Vital Signs Last Recorded V/S: Last Vital Signs Temp 97.5 F 09/17/20 21:15 Pulse 70 09/17/20 22:20 Resp 18 09/17/20 22:20 BP 113/77 09/17/20 22:20 Pulse Ox 96 09/17/20 22:20 - Orders/Labs/Meds Orders: Active Orders 24 hr Category Date Time Status EKG Documentation Completion [RC] STAT Care 09/17/20 21:32 Active Sodium Chloride 0.9% [Saline Flush] Med 09/17/20 21:32 Active 10 ml FLUSH ASDIRECTED PRN Sodium Chloride 0.9% [Saline Flush] Med 09/17/20 21:32 Active 2.5 ml FLUSH ASDIRECTED PRN Saline Lock Insert [OM.PC] Stat Oth 09/17/20 21:32 Ordered Medication Orders Sodium Chloride (Sodium Chloride 0.9% 10 Ml Syringe) 10 ml FLUSH ASDIRECTED PRN PRN Reason: Keep Vein Open Last Admin: 09/17/20 21:48 Dose: 10 ml Documented by: THIERRY Sodium Chloride (Sodium Chloride 0.9% 2.5 Ml Syringe) 2.5 ml FLUSH ASDIRECTED PRN PRN Reason: Keep Vein Open Last Admin: 09/17/20 21:48 Dose: 2.5 ml Documented by: THIERRY Labs: Laboratory Tests 09/17/20 09/17/20 Range/Units 21:14 21:14 WBC 5.73 (4.0-11.0) K/uL RBC 4.53 (4.50-5.90) M/uL Hgb 14.4 (13.0-17.0) g/dL Hct 42.4 (38.0-50.0) % MCV 93.6 (80.0-98.0) fL MCH 31.8 (27.0-32.0) pg MCHC 34.0 (31.0-37.0) g/dL RDW Std Deviation 44.5 (28.0-62.0) fl RDW Coeff of Elena 13 (11.0-15.0) % Plt Count 286 (150-400) K/uL MPV 9.20 (7.40-12.00) fL Neut % (Auto) 47.7 L (48.0-80.0) % Lymph % (Auto) 42.2 H (16.0-40.0) % [place] % (Auto) 8.2 (0.0-15.0) % Eos % (Auto) 1.7 (0.0-7.0) % Baso % (Auto) 0.2 (0.0-1.5) % Neut # (Auto) 2.7 (1.4-5.7) K/uL Lymph # (Auto) 2.4 (0.6-2.4) K/uL [place] # (Auto) 0.5 (0.0-0.8) K/uL Eos # (Auto) 0.1 (0.0-0.7) K/uL Baso # (Auto) 0.0 (0.0-0.1) K/uL Nucleated RBC % 0.0 /100WBC Nucleated RBCs # 0 K/uL Sodium 141 (136-148) mmol/L Potassium 4.6 (3.5-5.1) mmol/L Chloride 105 (98-107) mmol/L Carbon Dioxide 27.5 (21.0-32.0) mmol/L BUN 16 (7.0-18.0) mg/dL Creatinine 1.3 (0.8-1.3) mg/dL Est Cr Clr Drug Dosing 62.15 mL/min Estimated GFR (MDRD) 58.0 ml/min Glucose 252 H (74-106) mg/dL Calcium 9.0 (8.5-10.1) mg/dL Magnesium 2.1 (1.8-2.4) mg/dL Total Bilirubin 0.3 (0.2-1.0) mg/dL AST 32 (15-37) IU/L ALT 85 H (14-63) IU/L Alkaline Phosphatase 124 H (46-116) U/L Troponin I < 0.050 (0.000-0.056) ng/mL Total Protein 7.9 (6.4-8.2) g/dL Albumin 3.6 (3.4-5.0) g/dL Globulin 4.3 H (2.6-4.0) g/dL Albumin/Globulin Ratio 0.8 L (0.9-1.6) Meds: Medications Generic Name Dose Route Start Last Admin Trade Name Freq PRN Reason Stop Dose Admin Sodium Chloride 10 ml 09/17/20 21:32 09/17/20 21:48 Sodium Chloride 0.9% 10 Ml Syringe FLUSH 10 ml ASDIRECTED PRN Administration Keep Vein Open Sodium Chloride 2.5 ml 09/17/20 21:32 09/17/20 21:48 Sodium Chloride 0.9% 2.5 Ml Syringe FLUSH 2.5 ml ASDIRECTED PRN Administration Keep Vein Open Discontinued Medications Generic Name Dose Route Start Last Admin Trade Name Freq PRN Reason Stop Dose Admin Diazepam 2.5 mg 09/17/20 21:32 09/17/20 21:44 Diazepam 5 Mg/Ml Mdv IV 09/17/20 21:33 Not Given ONETIME ONE Diazepam 2.5 mg 09/17/20 21:42 09/17/20 21:49 Diazepam 10 Mg/2 Ml Syringe IVPUSH 09/17/20 21:43 2.5 mg ONETIME ONE Administration Diazepam Confirm 09/17/20 21:42 Diazepam 10 Mg/2 Ml Syringe Administered 09/17/20 21:43 Dose 10 mg .ROUTE .STK-MED ONE Sodium Chloride 1,000 mls @ 999 mls/hr 09/17/20 21:32 09/17/20 21:48 Normal Saline IV 09/17/20 22:32 999 mls/hr .Bolus ONE Administration Ketorolac Tromethamine 15 mg 09/17/20 21:34 09/17/20 21:48 Ketorolac 15 Mg/Ml Sdv IVPUSH 09/17/20 21:35 15 mg ONETIME ONE Administration - Re-Assessments/Exams Free Text/Narrative Re-Assessment/Exam: 09/17/20 21:40 Patient presents with acute exacerbation of chronic neurologic problem. The history is not consistent with seizure disorder. He does have good follow-up with his neurologist at [facility]. We will get labs to ensure no gross abnormalities. We will get a head and neck CT to ensure no changes. Will treat symptomatically with IV fluid bolus, Toradol, Valium. Will follow up lab and imaging results and clinical reassessment for disposition. 09/17/20 22:18 Labs unremarkable; imaging pending. Patient notes to nursing that these symptoms started after an injury at work in July of this year. 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 Will f/u imaging to assess for emergent abnormality and if unremarkable anticipate discharge with f/u 09/17/20 22:47 CT imaging is unremarkable. Chest x-ray is normal. Will discharge patient with follow-up neurology. He has established care and plans on following up for surgical procedure to neck next month. Departure - Departure Time of Disposition: 22:47 Disposition: Home, Self-Care 01 Condition: Good Clinical Impression: Neck pain, Hyperglycemia, Neuropathic pain - Discharge Information Instructions: Neuropathic Pain, Hyperglycemia Forms: ED Department Discharge Additional Instructions: Your labs were only remarkable for elevated blood glucose levels. Please follow-up with your primary care physician to see if you need to start diabetic medications. Your imaging was unremarkable. Your pain is likely neuropathic in nature considering the way you are describing it. Keep taking the medications recommended by your neurologist. Keep your follow-up appointment for surgery on your neck. The following information is given to patients seen in the emergency department who are being discharged to home. This information is to outline your options f or follow-up care. We provide all patients seen in our emergency department with a follow-up referral. The need for follow-up, as well as the timing and circumstances, are variable depending upon the specifics of your emergency department visit. If you don't have a primary care physician on staff, we will provide you with a referral. We always advise you to contact your personal physician following an emergency department visit to inform them of the circumstance of the visit and for follow-up with them and/or the need for any referrals to a consulting specialist. The emergency department will also refer you to a specialist when appropriate. This referral assures that you have the opportunity for follow-up care with a specialist. All of these measure are taken in an effort to provide you with optimal care, which includes your follow-up. Under all circumstances we always encourage you to contact your private physician who remains a resource for coordinating your care. When calling for follow-up care, please make the office aware that this follow-up is from your recent emergency room visit. If for any reason you are refused follow-up, please contact the [facility] Emergency Department at and asked to speak to the emergency department charge nurse. Please follow up with your primary care physician. If you do not have a primary care physician, see below: [facility] [address] [place] [id number] [facility] [address] [place] [address] [facility] [address] [place] [id number] Sepsis Event Note (ED) - Focused Exam Vital Signs: Vital Signs Temp Pulse Resp BP Pulse Ox 09/17/20 22:20 70 18 113/77 96 09/17/20 21:15 97.5 F 84 18 128/85 95 - My Orders Last 24 Hours: My Active Orders 09/17/20 21:32 EKG Documentation Completion [RC] STAT Sodium Chloride 0.9% [Saline Flush] 10 ml FLUSH ASDIRECTED PRN Sodium Chloride 0.9% [Saline Flush] 2.5 ml FLUSH ASDIRECTED PRN Saline Lock Insert [OM.PC] Stat - Assessment/Plan Last 24 Hours: My Active Orders 09/17/20 21:32 EKG Documentation Completion [RC] STAT Sodium Chloride 0.9% [Saline Flush] 10 ml FLUSH ASDIRECTED PRN Sodium Chloride 0.9% [Saline Flush] 2.5 ml FLUSH ASDIRECTED PRN Saline Lock Insert [OM.PC] Stat
[2020-09-17] MEDS ORDERED: Sodium Chloride 0.9% 2.5 ML Syringe FLUSH PRN (21:32)
[2020-09-17] MEDS ORDERED: Sodium Chloride 0.9% 1,000 ML IV ONE (21:32)
[2020-09-17] MEDS ORDERED: diazePAM 5 MG/ML MDV IV ONE (21:32)
[2020-09-17] MEDS ORDERED: Sodium Chloride 0.9% 10 ML Syringe FLUSH PRN (21:32)
[2020-09-17] MEDS ORDERED: Ketorolac 15 MG/ML SDV IVPUSH ONE (21:34)
[2020-09-17 21:51] LABS: BLOOD UREA NITROGEN,BUN 16 mg/dL (7.0-18.0); CARBON DIOXIDE,CO2 27.5 mmol/L (21.0-32.0); CHLORIDE,CL 105 mmol/L (98-107); GLUCOSE RANDOM 252 mg/dL (74-106); POTASSIUM,K 4.6 mmol/L (3.5-5.1); SODIUM,NA 141 mmol/L (136-148)
--- NOTE | 2020-09-17 22:20 | CR ---
INDICATION: Presyncope TECHNIQUE: Upright AP view of the chest COMPARISON: Upright AP chest radiograph 07/16/2020 FINDINGS: The lungs are clear. There is no sizable pleural effusion or pneumothorax. The cardiomediastinal silhouette is stable. The visualized osseous structures are unremarkable. IMPRESSION: No acute intrathoracic process. Dictated by Negin Miles MD @ 09/17/2020 10:19:[address] Negin Miles @ Sep 17 2020 10:19PM
--- NOTE | 2020-09-17 22:39 | CT ---
INDICATION: Presyncope. Electric shock sensation. TECHNIQUE: CT cervical spine without contrast. COMPARISON: An MRI dated 07/22/2020 FINDINGS: There is straightening of the cervical lordosis. The craniocervical and atlantoaxial alignments are near anatomical. There is no evidence of an acute cervical spine fracture. There is no significant precervical soft tissue swelling. There are degenerative changes at C5-6 with disc space narrowing, vacuum disc, osteophyte formation and osseous sclerosis. There is right neural foraminal stenosis and mild encroachment on the left neural foramen due to uncovertebral osteophytes. Mild degenerative changes are seen at C4-5. There is left C2-3 and mild bilateral C7-T1 degenerative facet disease. There is bilateral C7-T1 neural foraminal stenosis due to facet osteophytes. IMPRESSION: No evidence of an acute cervical spine fracture. Degenerative changes as described above. Right C5-6, and bilateral C7-T1, neural foraminal stenosis. Please note that all CT scans at this facility use dose modulation, iterative reconstruction, and/or weight-based dosing when appropriate to reduce radiation dose to as low as reasonably achievable. Dictated by Nicholas Griffiths MD @ 09/17/2020 10:37:[address] Nicholas Griffiths @ Sep 17 2020 10:37PM
--- NOTE | 2020-09-17 22:45 | CT ---
INDICATION: Presyncope. Electric shock sensation. TECHNIQUE: CT head without contrast. COMPARISON: 07/16/2020 FINDINGS: The ventricles and sulci are within normal limits for the patient`s age. There is no mass effect or midline shift. There is no loss of hanson-white differentiation. An apparent small left pontine low-density focus on image 12 could be artifactual. There is no evidence of an acute intracranial hemorrhage. No acute calvarial fracture is seen. The visualized paranasal sinuses and mastoid air cells are clear. Post cataract surgery changes are seen. IMPRESSION: No evidence of an acute intracranial hemorrhage, mass effect or loss of hanson-white differentiation. Please note that all CT scans at this facility use dose modulation, iterative reconstruction, and/or weight-based dosing when appropriate to reduce radiation dose to as low as reasonably achievable. Dictated by Nicholas Griffiths MD @ 09/17/2020 10:43:[address] Nicholas Griffiths @ Sep 17 2020 10:43PM
== END 2020-09-17 23:22 | disposition home or self-care (01) ==
LOC: MW.ED 21:11
DX: M54.2 Cervicalgia (principal); M79.2 Neuralgia and neuritis, unspecified; I10 Essential (primary) hypertension; E11.65 Type 2 diabetes mellitus with hyperglycemia; Z91.018 Allergy to other foods; Z79.84 Long term (current) use of oral hypoglycemic drugs; Z79.899 Other long term (current) drug therapy
CPT/HCPCS: 36415; 70450; 71045; 72125; 80053; 83735; 84484; 85025; 93005; 96374; 96375; 99285; J1885; J3360; J7030; 93010; 99284

== ENCOUNTER 2020-10-09 00:54 | Emergency (ER) | payer MEDICAID ==
--- NOTE | 2020-10-09 01:06 | EDM.PDOC ---
ED HPI GENERAL MEDICAL PROBLEM - General Chief Complaint: Respiratory Problem Stated Complaint: BACK PAIN Time Seen by Provider: 10/09/20 01:00 Source of Information: Reports: Patient History Limitations: Reports: No Limitations - History of Present Illness INITIAL COMMENTS - FREE TEXT/NARRATIVE: 50-year-old male with history of anxiety woke up gasping for air this evening, symptoms lasted for 1 minute. He felt anxious upon waking. He is status post cervical surgery on 09/30/[address] Dulce Shah, with a follow-up appointment this morning in 10 hours with her at [place]. He currently takes tramadol, gabapentin for pain, and is also prescribed Valium for anxiety. ROS: A 10-point review of systems, other than pertinent positives and negatives as stated per HPI, is otherwise negative Past medical history: No additional pertinent history Past Surgical history: No additional pertinent history Social history: No additional pertinent history Family history: No additional pertinent history PHYSICAL EXAM General: AOx4, GCS = 15, No distress HEENT: dry mucous membrane, pin point pupils Neck: supple, no meningismus, no Kernig or Brudzinski, cervical soft collar in place. Cardiac: S1S2 RRR Respiratory: Bradyapnea, CTAB, no crackles or rales, no wheezing Abdomen: Soft, nontender, no rebound or guarding, nondistended, no pulsatile mass. Back: nontender Musculoskeletal: NVI distally, no deformity Neuro: No focal deficits, CN 2 - 12 WNL. Neck Pain Score (Numeric/FACES): 6 - Related Data Allergies Allergy/AdvReac Type Severity Reaction Status Date / Time shrimp Allergy Swelling Verified 09/17/20 21:19 Home Meds: Home Meds metFORMIN [Glucophage] 500 mg PO DAILY 30 Days #30 tab 12/21/19 [Rx] Ketorolac [Toradol] 10 mg PO TID 4 Days #12 tab 12/24/19 [Rx] Omeprazole 40 mg PO DAILY 10/09/20 [History] Past Medical History HEENT History: Reports: Other (See Below) Other HEENT History: h/o lock jaw Cardiovascular History: Reports: Hypertension Respiratory History: Reports: None Gastrointestinal History: Reports: None Genitourinary History: Reports: None Musculoskeletal History: Reports: None Neurological History: Reports: Neuropathy, Diabetic Other Neuro History: ulnar neuropathy Psychiatric History: Reports: None Endocrine/Metabolic History: Reports: Diabetes, Type II Insulin Pump Model and Material Distributor: None Hematologic History: Reports: None Immunologic History: Reports: None Oncologic (Cancer) History: Reports: None Dermatologic History: Reports: None - Infectious Disease History Infectious Disease History: Reports: None - Past Surgical History Head Surgeries/Procedures: Reports: None HEENT Surgical History: Reports: Other (See Below) Other HEENT Surgeries/Procedures: R jaw Musculoskeletal Surgical History: Reports: Other (See Below) Other Musculoskeletal Surgeries/Procedures:: C5-C6 nerve damage Social & Family History - Family History Family Medical History: No Pertinent Family History - Caffeine Use Caffeine Use: Reports: None ED ROS GENERAL - Review of Systems Review Of Systems: See Below (see dictation) ED EXAM, GENERAL - Physical Exam Exam: See Below (see dictation) #1 Interpretation EKG Interpretation Comments: Heart rate = 67 bpm, normal sinus rhythm, normal QRS interval, no STEMI. EKG and rhythm strip interpreted by me at 1255 Course - Vital Signs Last Recorded V/S: Last Vital Signs Temp 98.4 F 10/09/20 01:05 Pulse 67 10/09/20 01:05 Resp 13 10/09/20 01:05 BP 128/75 10/09/20 01:05 Pulse Ox 96 10/09/20 01:05 - Orders/Labs/Meds Orders: Active Orders 24 hr Category Date Time Status Chest 1V Frontal [CR] Stat Exams 10/09/20 01:13 Taken - Re-Assessments/Exams Free Text/Narrative Re-Assessment/Exam: 10/09/20 01:16 MEDICAL DECISION MAKING: I reviewed the patients past medical records, lab and radiographic findings. I discussed the case with the patient. My differential diagnosis included: Polypharmacy induced respiratory depression, anxiety, sleep apnea. Patient is on multiple pain medication and benzodiazepine, his physical exam demonstrated pinpoint pupils and bradypnea, his symptoms are consistent with polypharmacy induced respiratory depression. He woke up gasping for air today likely secondary to [employer] compensation to his respiratory depression propagated by polypharmcy, and during that minute he was anxious. He currently has no symptoms. His chest x-ray did not reveal any infectious etiology or edema or pleural effusion. His EKG did not reveal any ischemic abnormalities or arrhythmia. He has no complaints of chest pain, there is no crackles or rales on lung exam, with no pedal edema, I do not suspect CHF. He denies pleuritic pain or hemoptysis, he has no tachycardia, I do not suspect pulmonary embolism. He has a history of anxiety and he feels anxious during the 1 minute episode. He is an obese patient with undiagnosed sleep apnea, I suspect possibly underlying MIGUELITO, he is stable for outpatient diagnostic work-up. Patient has postoperative follow-up tomorrow with Dr. Dulce Shah AT 11AM. Departure - Departure Time of Disposition: 01:48 Disposition: Home, Self-Care 01 Condition: Good Clinical Impression: Anxiety, At risk for polypharmacy, Bradypnea - Discharge Information *PRESCRIPTION DRUG MONITORING PROGRAM REVIEWED*: Not Applicable *COPY OF PRESCRIPTION DRUG MONITORING REPORT IN PATIENT LETTY: Not Applicable Instructions: Shortness of Breath, Adult, [id number], Managing Anxiety, Adult Referrals: Dulce Shah MD [Ordering Only Provider] - 10/09/20 11:00 am Forms: ED Department Discharge Additional Instructions: The need for follow-up, as well as the timing and circumstances, are variable depending upon the specifics of your emergency department visit. If you don't have a primary care physician on staff, we will provide you with a referral. We always advise you to contact your personal physician following an emergency department visit to inform them of the circumstance of the visit and for follow-up with them and/or the need for any referrals to a consulting specialist. The emergency department will also refer you to a specialist when appropriate. This referral assures that you have the opportunity for follow-up care with a specialist. All of these measure are taken in an effort to provide you with optimal care, which includes your follow-up. Under all circumstances we always encourage you to contact your private physician who remains a resource for coordinating your care. When calling for follow-up care, please make the office aware that this follow-up is from your recent emergency room visit. If for any reason you are refused follow-up, please contact the [facility] Emergency Department at and asked to speak to the emergency department charge nurse. If you do not have a primary care doctor, please follow up with the clinics below within 3-5 days. Matt Morataya [facility] - Primary [facility] [address] [place] [id number] [address] Sepsis Event Note (ED) - Focused Exam Vital Signs: Vital Signs Temp Pulse Resp BP Pulse Ox 10/09/20 01:05 98.4 F 67 13 128/75 96 - My Orders Last 24 Hours: My Active Orders 10/09/20 01:13 Chest 1V Frontal [CR] Stat - Assessment/Plan Last 24 Hours: My Active Orders 10/09/20 01:13 Chest 1V Frontal [CR] Stat
--- NOTE | 2020-10-09 02:41 | CR ---
INDICATION: Chest pain TECHNIQUE: AP view of the chest COMPARISON: None FINDINGS: The lungs are clear. There is no sizable pleural effusion or pneumothorax. The cardiomediastinal silhouette is normal. The visualized osseous structures are unremarkable. IMPRESSION: No acute intrathoracic process. Dictated by Negin Miles MD @ 10/09/2020 2:40:[address] Negin Miles @ Oct 09 2020 2:40AM
== END 2020-10-09 01:45 | disposition home or self-care (01) ==
LOC: MW.ED 00:54
DX: F41.9 Anxiety disorder, unspecified (principal); R06.89 Other abnormalities of breathing; I10 Essential (primary) hypertension; E11.40 Type 2 diabetes mellitus with diabetic neuropathy, unspecified; Z91.013 Allergy to seafood; Z79.84 Long term (current) use of oral hypoglycemic drugs
CPT/HCPCS: 71045; 71045-26; 93005; 99284-25

== ENCOUNTER 2021-07-23 21:23 | Emergency (ER) | payer MEDICAID ==
[2021-07-23] MEDS ORDERED: HYDROmorphone 2 MG/ML Syringe IVPUSH ONE (23:57)
[2021-07-23] MEDS ORDERED: Ondansetron 4 MG/2 ML SDV IVPUSH ONE (23:57)
== END 2021-07-24 00:39 | disposition home or self-care (01) ==
LOC: MW.ED 21:23
DX: S39.011A Strain of muscle, fascia and tendon of abdomen, initial encounter (principal); E11.40 Type 2 diabetes mellitus with diabetic neuropathy, unspecified; I10 Essential (primary) hypertension; Z91.013 Allergy to seafood; X50.0XXA Overexertion from strenuous movement or load, initial encounter
CPT/HCPCS: 96374; 96375; 99283; J1170; J2405; 99282

== ENCOUNTER 2022-04-26 03:22 | Emergency (ER) | payer MEDICAID | END 2022-04-26 03:58 | disposition home or self-care (01) | LOC: MW.ED 03:22 | DX: H60.92 Unspecified otitis externa, left ear (principal); I10 Essential (primary) hypertension; E11.9 Type 2 diabetes mellitus without complications; Z91.013 Allergy to seafood; Z79.899 Other long term (current) drug therapy | CPT/HCPCS: 99283 ==

== ENCOUNTER 2024-09-13 08:14 | Emergency (ER) | payer MEDICAID ==
[2024-09-13] MEDS ORDERED: Sodium Chloride 0.9% 10 ML Syringe FLUSH PRN (08:16)
[2024-09-13] MEDS ORDERED: Sodium Chloride 0.9% 20 ML SDV IV PRN (08:16)
[2024-09-13] MEDS ORDERED: Sodium Chloride 0.9% 2.5 ML Syringe FLUSH PRN (08:16)
[2024-09-13 08:29] LABS: BASOPHILS ABSOLUTE AUTO 0.04 K/uL (0.00-0.20); BASOPHILS PERCENT AUTO 0.7 % (0.0-1.0); EOSINOPHILS PERCENT AUTO 3.4 % (0.0-6.0); HEMATOCRIT 40.8 % (42.0-52.0); HEMOGLOBIN 13.7 g/dL (14.0-18.0); IMMATURE GRAN ABSOLUTE AUTO 0.02 K/uL (0.00-0.05); IMMATURE GRAN PERCENT AUTO 0.3 % (0.0-0.4); LYMPHOCYTES ABSOLUTE AUTO 2.42 K/uL (1.00-4.80); LYMPHOCYTES PERCENT AUTO 41.6 % (24.0-44.0); MEAN CORPUSCULAR HEMOGLOBIN 31.6 pg (28.0-32.0); MEAN CORPUSCULAR HGB CONC 33.6 g/dL (32.0-36.0); MEAN PLATELET VOLUME 9.1 fL (9.4-12.4); MONOCYTES ABSOLUTE AUTO 0.38 K/uL (0.00-0.80); MONOCYTES PERCENT AUTO 6.5 % (0.0-8.0); NEUTROPHILS ABSOLUTE AUTO 2.76 K/uL (1.80-7.70); NEUTROPHILS PERCENT AUTO 47.5 % (41.0-71.0); PLATELET COUNT,PLT 240 K/uL (150-400); RED BLOOD CELL COUNT 4.34 M/uL (4.52-5.90); WHITE BLOOD CELL COUNT,WBC 5.82 K/uL (3.9-11.3)
[2024-09-13 08:42] LABS: INR 1.02 (0.86-1.11); PTT,PARTIAL THROMBOPLSTIN TIME 24.7 SEC (23.9-30.7)
[2024-09-13 08:58] LABS: A/G RATIO 0.9 (0.9-1.6); ALANINE AMINOTRANSFERASE,ALT 69 IU/L (14-63); ALBUMIN 3.4 g/dL (3.4-5.0); ALKALINE PHOSPHATASE 108 U/L (46-116); ASPARTATE AMNIOTRANSFERASE,AST 34 IU/L (15-37); BILIRUBIN TOTAL 0.5 mg/dL (0.2-1.0); BLOOD UREA NITROGEN,BUN 16 mg/dL (7.0-18.0); CALCIUM 8.9 mg/dL (8.5-10.1); CARBON DIOXIDE,CO2 27.6 mmol/L (21.0-32.0); CHLORIDE,CL 100 mmol/L (98-107); CREATININE 1.2 mg/dL (0.8-1.3); GLUCOSE RANDOM 291 mg/dL (74-106); LIPASE 58 U/L (16-77); POTASSIUM,K 4.5 mmol/L (3.5-5.1); PRO B-TYPE NATRIUR PEPT,BNPPRO 35 pg/mL (0-125); PROTEIN TOTAL,TP 7.3 g/dL (6.4-8.2); SODIUM,NA 136 mmol/L (136-148)
[2024-09-13 08:59] LABS: ESTIMATED GFR 71 mL/min (>60)
[2024-09-13 09:05] LABS: AMPHETAMINES SCREEN, URINE NEGATIVE (CUTOFF=500); BARBITURATE SCREEN,URINE NEGATIVE (CUTOFF=200); BENZODIAZEPINES SCREEN,URINE NEGATIVE (CUTOFF=150); BUPRENORPHINE SCREEN,URINE NEGATIVE (CUTOFF=10); METHADONE SCREEN, URINE NEGATIVE (CUTOFF=200); METHAMPHETAMINES SCREEN, URINE NEGATIVE (CUTOFF=500); OXYCODONE SCREEN,URINE NEGATIVE (CUT0FF=100); PCP SCREEN,URINE NEGATIVE (CUTOFF=25); THC SCREEN,URINE 20 NG/ML NEGATIVE (CUTOFF=50)
== END 2024-09-13 10:49 | disposition home or self-care (01) ==
LOC: MW.ED 08:14
DX: R07.2 Precordial pain (principal); R06.02 Shortness of breath; E66.9 Obesity, unspecified; I10 Essential (primary) hypertension; E11.9 Type 2 diabetes mellitus without complications; Z91.013 Allergy to seafood
CPT/HCPCS: 36415; 71045; 71045-26; 80053; 80305; 83690; 83880; 84484; 85025; 85379; 85610; 85730; 87428-QW; 93005; 93010; 99284; 99285